=== PATIENT | male | born 1960 | race Caucasian/White ===

== ENCOUNTER → 2020-04-19 | Outpatient (CLI) | payer MEDICARE, SELFPAY ==
[~2020-04-19] MED LIST: ALBU2.5V5 NEB; ATOR20 PO; BISM300CH PO; BUSP5 PO; ELIQUIS5 MG PO; FAMO20 PO; FOLIC ACID0.4 MG PO; GLUCHON PO; KRILL OIL500 MG PO; MULVITA PO; SALM50IP INH; VITAMIN D310 MC4 PO; Vitamin B Comple1 EA PO; Vitamin C100 M1 PO
== END | disposition home or self-care (01) ==
LOC: LAB SHORT 16:36 → LAB EV 16:36
DX: L02.215 Cutaneous abscess of perineum (principal)
CPT/HCPCS: 87070; 87205

== ENCOUNTER 2020-07-14 06:01 | Day surgery (SDC) | payer MEDICARE, OTHER ==
[~2020-07-14] VITALS: Ht 175.3 cm; Wt 62.1 kg
[~2020-07-14 06:01] MED LIST changes: -FAMO20 PO
--- NOTE | 2020-07-14 09:28 | NUR ---
6936 PATIENT RETURNED FROM THE [facility]. RADIAL ACCESS ONLY. TR BAND IN PLACE AND 11 ML OF AIR IN THE BAND. NO HEMATOMA, NO BLEEDING. PULSES CHECKED PEDAL RIGHT PT/ DOPPLER, NO RIGHT DP NOTED, LEFT PT/DP DOPPLER. NO PAIN, SLEEPY. MONITOR APPLIED AND VSS. SBAR RECEIVED FROM DOROTHY DENNY
--- NOTE | 2020-07-14 09:38 | NUR ---
BREAKFAST TRAY SET UP AND PATIENT AWAKE AND FEEDING SELF. RIGHT RADIAL WITH ARM BOARD TO DETER USE. NO BLEEDING, NO HEMATOMA NOTED.
--- NOTE | 2020-07-14 11:15 | NUR ---
AIR REMOVED FROM THE TR BAND PER PROTOCOL. NO BLEEDING NOTED.
--- NOTE | 2020-07-14 11:54 | NUR ---
PATIENT UP AND DRESSED, TR BAND FLAT ANDNO BLEEDING NOTED. REVIEWED ALL DISCHARGE INSTRUCTIONS AND NO FURTHER QUESTIONS NOTED. TR BAND REMOVED AND SITE CLEANED. CLOTH DOT AND WHITE BOARD REPLACED. PATIENT UNDERSTANDS NOT TO USE THE RIGHT ARM FOR 24 HOURS. PATIENT DRESSED AND ALL BELONGINGS RETAINED. PATIENT TO THE WHEELCHAIR. DISCHARGED HOME WITH DRIVING.
[2020-11-05] MEDS ORDERED: FAMO20 PO (12:45)
== END 2020-07-14 12:00 | disposition home or self-care (01) ==
LOC: MHTC 06:01
DX: I70.213 Atherosclerosis of native arteries of extremities with intermittent claudication, bilateral legs (principal); I10 Essential (primary) hypertension; J44.9 Chronic obstructive pulmonary disease, unspecified; E78.5 Hyperlipidemia, unspecified; Z79.01 Long term (current) use of anticoagulants; Z87.891 Personal history of nicotine dependence; Z88.8 Allergy status to other drugs, medicaments and biological substances; Z91.018 Allergy to other foods
CPT/HCPCS: 37221; 37224; 75625; 75716; 75774; 76937; 99152; 99153; C1725; C1769; C1876; C1887; C1894; J1644; J2250; J3010; J7030; J7050; Q9967

== ENCOUNTER 2020-08-05 06:21 | Day surgery (SDC) | payer MEDICARE, OTHER ==
[~2020-08-05] VITALS: Ht 175.3 cm; Wt 62.0 kg
--- NOTE | 2020-08-05 11:22 | NUR ---
PT BACK TO RECOVERY ROOM AFTER PROCEDURE. RIGHT RADIAL, LEFT DP, AND LEFT PT ACCESS SITES PRESENT. LEFT PT SITE HAS CONTINUED TO BLEED AFTER 20 MINUTES OF MANUAL PRESSURE. WILL CONTINUE TO HOLD PRESSURE.
--- NOTE | 2020-08-05 11:40 | NUR ---
LEFT PT SITE HAS CONTINUED TO HAVE PULSATILE BLEEDING AFTER 20 MINUTES OF MANUAL PRESSURE. MANUAL PRESSURE CONTINUES, WILL NOTIFY DR ARAUJO OF CONTINUED BLEEDING.
--- NOTE | 2020-08-05 12:00 | NUR ---
LEFT PT SITE CONTINUES TO BLEED. PT STATES HE IS HAVING PAIN AT THE SITE OF "20" OUT OF 10, DUE TO THE MANUAL PRESSURE. MEDICATED WITH 50MCG FENTANYL IV PER ORDERS.
--- NOTE | 2020-08-05 12:45 | NUR ---
PT SLEEPING INTERMITTENTLY, COMPLAINS OF RIGHT SHOULDER PAIN. APPEARS VERY RESTLESS IN BED, SHIFTING WEIGHT AROUND FREQUENTLY. MEDICATED WITH 25MCG FENTANYL IV.
--- NOTE | 2020-08-05 12:55 | NUR ---
ATTEMPTED TO TAKE SOME AIR OUT OF TR BAND, 2 CC'S REMOVED, IMMEDIATE PULSATILE BLEEDING NOTED.
--- NOTE | 2020-08-05 13:16 | NUR ---
PT CONTINUES TO COMPLAIN OF PAIN "ALL OVER", REMAINS RESTLESS AND IS MOVING AROUND IN BED. BP ELEVATED, MEDICATED WITH 10MG HYDRALAZINE IV, WILL REPEAT IN 10 MIN IF BP CONTINUES TO BE ELEVATED.
--- NOTE | 2020-08-05 14:05 | NUR ---
PT PROVIDED WITH LUNCH TRAY, TOLERATES WITH NO DIFFICULTIES. TR BAND FULLY DEFLATED, ARM BOARD REMAINS ON FOR SUPPORT. OOZING NOTED UNDER TR BAND, WILL CONTINUE TO MONITOR. NO SIGNS OF HEMATOMA. LEFT POST TIBIAL SITE WITH NEW RINKU PAD IN PLACE AND PRESSURE DRESSING ON, BLEEDING NOTED WHEN TRYING TO REMOVE INITIAL PRESSURE DRESSING THAT WAS IN PLACE. CALL LIGHT IN REACH.
--- NOTE | 2020-08-05 15:30 | NUR ---
PRESSURE DRESSING REMOVED FROM LEFT PT SITE. RINKU PAD AND TEGADERM IN PLACE. NO ACTIVE BLEEDING NOTED. RIGHT RADIAL SITE WITHOUT BLEEDING OR SWELLING.
--- NOTE | 2020-08-05 15:57 | NUR ---
TR BAND REMOVED FROM RIGHT WRIST, RED CLOTH DOT DRESSING APPLIED. ARM BOARD ON FOR SUPPORT. PT OUT OF BED, PRESSURE DRESSING PREVIOUSLY REMOVED, SITE DOES NOT APPEAR TO BE ACTIVELY BLEEDING ON LEFT POST TIBIAL REGION. NON SKID SOCKS PLACED FOR AMBULATING, PT INTO RESTROOM WITH CANE. NO ACUTE DISTRESS NOTED.
== END 2020-08-05 23:26 | disposition home or self-care (01) ==
LOC: MHTC 06:21
DX: I70.213 Atherosclerosis of native arteries of extremities with intermittent claudication, bilateral legs (principal); I10 Essential (primary) hypertension; E78.5 Hyperlipidemia, unspecified; J44.9 Chronic obstructive pulmonary disease, unspecified; Z89.412 Acquired absence of left great toe; Z87.891 Personal history of nicotine dependence
CPT/HCPCS: 36200; 37224; 37228; 37232; 75710; 75716; 75774; 76937; 85347; 99152; 99153; C1725; C1769; C1887; C1894; C2623; J0360; J1644; J2250; J2997; J3010; J7030; J7040; J7050; Q9967

== ENCOUNTER 2020-11-12 10:00 | Day surgery (SDC) | payer MEDICARE, SELFPAY ==
[~2020-11-12] VITALS: Ht 175.3 cm; Wt 62.9 kg
[~2020-11-12 10:00] MED LIST changes: +FAMO20 PO
== END 2020-11-12 12:27 | disposition home or self-care (01) ==
LOC: ORSCSDS 10:00
PROVIDERS: Internal Medicine Gastroenterology
PROC: 0DB68ZX Excision of Stomach, Via Natural or Artificial Opening Endoscopic, Diagnostic (ICD-10-PCS; principal; 2020-11-12 11:15)
PROC: 0DBL8ZX Excision of Transverse Colon, Via Natural or Artificial Opening Endoscopic, Diagnostic (ICD-10-PCS; principal; 2020-11-12 11:15)
PROC: 0DBN8ZX Excision of Sigmoid Colon, Via Natural or Artificial Opening Endoscopic, Diagnostic (ICD-10-PCS; principal; 2020-11-12 11:15)
DX: R19.5 Other fecal abnormalities (principal); D12.5 Benign neoplasm of sigmoid colon; D37.4 Neoplasm of uncertain behavior of colon; K64.8 Other hemorrhoids; K25.9 Gastric ulcer, unspecified as acute or chronic, without hemorrhage or perforation; K29.80 Duodenitis without bleeding; K44.9 Diaphragmatic hernia without obstruction or gangrene; K21.00 Gastro-esophageal reflux disease with esophagitis, without bleeding; Z79.899 Other long term (current) drug therapy; F41.9 Anxiety disorder, unspecified; J44.9 Chronic obstructive pulmonary disease, unspecified; E78.5 Hyperlipidemia, unspecified; Z87.891 Personal history of nicotine dependence
CPT/HCPCS: 88305; 88342; J2704; J7120

== ENCOUNTER → 2021-04-12 | Outpatient (CLI) | payer MEDICARE ==
[~2021-04-12] MED LIST changes: -SALM50IP INH; +Serevent Disku50 MCG IH
== END ==
LOC: LAB SHORT 09:10 → LAB 09:10
DX: N61.1 Abscess of the breast and nipple (principal); N61.0 Mastitis without abscess
CPT/HCPCS: 87070; 87075; 87205

== ENCOUNTER 2021-06-07 06:19 | Day surgery (SDC) | payer MEDICARE ==
[~2021-06-07] VITALS: Ht 175.3 cm; Wt 62.0 kg
[2021-06-07] MEDS ORDERED: Acetaminophen650 M1 PO (07:17)
[2021-06-07] MEDS ORDERED: OMEGA-3 KRILL1 EAC4 PO (07:18)
[2021-06-07] MEDS ORDERED: OMEP20ER PO (07:19)
--- NOTE | 2021-06-07 12:05 | NUR ---
PT DRESSED SELF AND AMBULATED TO RESTROOM WITH NO COMPLICATIOONS. PTS R PT SITE STARTED BLEEDING ONCE PUTTING ON SOCK. MANUAL PRESSURE HELD TO SITE X5MINS. RINKU DRESSING APPLIED TO SITE. PT WALKED AROUND WITH NO ADDITIONAL BLEEDING AND INSISTED ONE GOING HOME. PT EDUCATED TO STAY OFF FOOT FOR THE REST OF THE DAY. PT STATES HIS UNDERSTANDING AND HOW TO HOLD PRESSURE TO SITE IF BLEEING WAS TO OCCUR AT HOME. PT STATES THIS IS HIS THIRD PROCEDURE WITH THE SAME ACCESS SITE AND DENIES ANY QUESTIONS OR CONCERNS. IV DCD WITH CATH INTACT. VSS. PT TAKEN TO EXIT VIA WHEELCHAIR. CHECKED PTS ACCESS SITE PRIOR TO GETTING INTO CAR AND SITE WAS STABLE WITH NO BLEEDING, OOZING OR HEMATOMA NOTED.
== END 2021-06-07 15:50 | disposition home or self-care (01) ==
LOC: MHTC 06:19
DX: I70.222 Atherosclerosis of native arteries of extremities with rest pain, left leg (principal)
CPT/HCPCS: 76937; 85347; 99152; 99153; C1725; C1769; C1887; C1894; C2623; J1644; J2250; J3010; J7030; J7050; Q9967

== ENCOUNTER 2021-11-20 12:35 | Inpatient (IN) | payer MEDICARE ==
[~2021-11-20] VITALS: Ht 175.3 cm; Wt 74.9 kg
[~2021-11-20 12:35] MED LIST changes: +Acetaminophen650 M1 PO; -FOLIC ACID0.4 MG PO; -GLUCHON PO; +OMEP20ER PO; -VITAMIN D310 MC4 PO; -Vitamin B Comple1 EA PO; -Vitamin C100 M1 PO
[2021-11-20 15:13] LABS: BASOPHILS ABSOLUTE AUTO 0.05 K/mm3 (0.00-0.23); BASOPHILS PERCENT AUTO 0 % (0-2); EOSINOPHILS ABSOLUTE AUTO 0.02 K/mm3 (0.00-0.68); EOSINOPHILS PERCENT AUTO 0 % (0-6); Hematocrit 41.6 % (37.0-53.0); IMMATURE GRAN ABSOLUTE AUTO 0.03 K/mm3 (0.00-0.10); IMMATURE GRAN PERCENT AUTO 0 % (0-1); LYMPHOCYTES ABSOLUTE AUTO 2.59 K/mm3 (0.84-5.20); LYMPHOCYTES PERCENT AUTO 21 % (21-46); MONOCYTES ABSOLUTE AUTO 0.52 K/mm3 (0.16-1.47); MONOCYTES PERCENT AUTO 4 % (4-13); Mean Corpuscular HGB 35.3 pg (26.0-34.0); Mean Corpuscular HGB Conc 33.7 g/dL (31.5-36.5); Mean Corpuscular Volume 105 fL (80-100); Mean Platelet Volume 10.3 fL (9.1-12.4); NEUTROPHILS ABSOLUTE AUTO 9.01 K/mm3 (1.96-9.15); NEUTROPHILS PERCENT AUTO 74 % (41-73); Platelet Count 194 K/mm3 (150-400); RDW Coefficient Variation 15.4 % (11.7-14.2); RDW Standard Deviation 59.7 fL (35.1-46.3); Red Blood Cell Count 3.97 M/mm3 (4.30-5.90); White Blood Cell Count 12.22 K/mm3 (4.00-11.30)
[2021-11-20 15:38] LABS: Albumin, Blood 1.5 g/dL (3.4-5.0); Albumin/Globulin Ratio 0.4 (0.8-1.8); Bilirubin, Total 0.7 mg/dL (0.1-1.0); Bun/Creatinine Ratio 10.1 (12.0-20.0); Calcium, Blood 7.6 mg/dL (8.5-10.1); Creatinine, Blood 1.09 mg/dL (0.60-1.20); Globulin, Blood 4.2 g/dL (2.2-4.0); Potassium, Blood 3.8 mmol/L (3.5-5.5); Total Protein, Blood 5.7 g/dL (6.4-8.2)
[2021-11-20 16:48] LABS: Creatine Kinase MB 38.9 ng/mL (0.0-3.6); Creatine Kinase MB Index 10.4 (0.0-4.0)
[2021-11-20] MEDS ORDERED: ACET325 PO (17:11)
[2021-11-21] MEDS ORDERED: FOLIC ACID0.4 MG PO (01:40)
[2021-11-21] MEDS ORDERED: VITAMIN D310 MC4 PO (01:40)
[2021-11-21] MEDS ORDERED: Vitamin C100 M1 PO (01:40)
[2021-11-21] MEDS ORDERED: GLUCHON PO (01:40)
[2021-11-21] MEDS ORDERED: OMEGA-3 KRILL1 EAC4 PO (01:40)
[2021-11-21] MEDS ORDERED: Vitamin B Comple1 EA PO (01:40)
[2021-11-21] MEDS ORDERED: ZINC50 M3 PO (01:46)
[2021-11-21 04:35] LABS: BASOPHILS ABSOLUTE AUTO 0.05 K/mm3 (0.00-0.23); BASOPHILS PERCENT AUTO 1 % (0-2); EOSINOPHILS ABSOLUTE AUTO 0.17 K/mm3 (0.00-0.68); EOSINOPHILS PERCENT AUTO 2 % (0-6); Hematocrit 38.3 % (37.0-53.0); Hemoglobin 12.9 g/dL (13.5-17.5); IMMATURE GRAN ABSOLUTE AUTO 0.03 K/mm3 (0.00-0.10); IMMATURE GRAN PERCENT AUTO 0 % (0-1); LYMPHOCYTES ABSOLUTE AUTO 2.18 K/mm3 (0.84-5.20); LYMPHOCYTES PERCENT AUTO 25 % (21-46); MONOCYTES ABSOLUTE AUTO 0.51 K/mm3 (0.16-1.47); MONOCYTES PERCENT AUTO 6 % (4-13); Mean Corpuscular HGB 35.2 pg (26.0-34.0); Mean Corpuscular HGB Conc 33.7 g/dL (31.5-36.5); Mean Corpuscular Volume 105 fL (80-100); Mean Platelet Volume 10.8 fL (9.1-12.4); NEUTROPHILS ABSOLUTE AUTO 5.73 K/mm3 (1.96-9.15); NEUTROPHILS PERCENT AUTO 66 % (41-73); Platelet Count 174 K/mm3 (150-400); RDW Coefficient Variation 15.5 % (11.7-14.2); RDW Standard Deviation 60.1 fL (35.1-46.3); Red Blood Cell Count 3.66 M/mm3 (4.30-5.90); White Blood Cell Count 8.67 K/mm3 (4.00-11.30)
[2021-11-21 04:51] LABS: International Normalized Ratio 2.02; Prothrombin Time Results 20.3 Sec (9.7-11.5)
[2021-11-21 04:55] LABS: Albumin, Blood 1.2 g/dL (3.4-5.0); Albumin/Globulin Ratio 0.3 (0.8-1.8); Bilirubin, Total 0.7 mg/dL (0.1-1.0); Bun/Creatinine Ratio 9.3 (12.0-20.0); Calcium, Blood 7.4 mg/dL (8.5-10.1); Creatinine, Blood 1.07 mg/dL (0.60-1.20); Globulin, Blood 3.5 g/dL (2.2-4.0); Magnesium, Blood 1.7 mg/dL (1.6-2.4); Potassium, Blood 3.5 mmol/L (3.5-5.5); Total Protein, Blood 4.7 g/dL (6.4-8.2)
--- NOTE | 2021-11-21 06:23 | NUR ---
FILTER PRESS TENDER SUMMARY PT IS ALERT AND ORIENTED COMMUNICATING APPROPRIATELY W STAFF. PT HAS DENIED ANY CP OR PRESSURE THIS SHIFT. O2 SATS >92% ON RM AIR BUT WHEN PT WAS ASLEEP HIS SPO2 DROPED TO 85% REQUIRING 2-3L TO MAINTAIN O2 SATS >92%. TROPONINS PEAKED AND PROVIDER NOTIFIED W NEW ORDER TO CONSULT CARDIOLOGY, MESSAGE LEFT AT CARDIOLOGY ANSWERING SERVICE. PT'S BP WNL AND STABLE. TELE SHOWING SR IN THE 70'S-80'S THIS SHIFT. WILL REPORT TO ONCOMING RN.
--- NOTE | 2021-11-21 17:12 | NUR ---
SHIFT SUMMARY PT REMAINS ALERT AND ORIENTED. VS STABLE. BP SOFT THIS EVENING, BUT MAP IS >65. HR REMIANS NSR. PT DENIES ANY CP ALL SHIFT. O2 SATS >90% ON RA. PLAN FOR ANGIO IN THE AM AND PT TO BE NPO AFTER MIDNIGHT. AT BEDSIDE. WILL CONTINUE TO MONITOR AND REPORT TO ONCOMING RN
[2021-11-22 05:48] LABS: International Normalized Ratio 1.66; Prothrombin Time Results 16.9 Sec (9.7-11.5)
[2021-11-22 06:00] LABS: Bun/Creatinine Ratio 7.6 (12.0-20.0); Calcium, Blood 7.1 mg/dL (8.5-10.1); Creatinine, Blood 1.31 mg/dL (0.60-1.20); Potassium, Blood 3.8 mmol/L (3.5-5.5)
--- NOTE | 2021-11-22 06:20 | NUR ---
CARDIAC SONOGRAPHER SUMMARY PT IS ALERT AND ORIENTED COMMUNICATING APPROPRIATELY W STAFF. PT HAS DENIED ANY CP OR PRESSURE THIS SHIFT. O2 SATS >90% ON RM AIR WHILE AWAE BUT AGAIN REQUIRING 3L NC WHEN ASLEEP TO MAINATIN O2 SATS >90%. BP REMAINED SOFT ALL SHIFT SO THE PT'S 2100 LOPRESSOR WAS HELD. TELE SHOWING SR IN THE 80'S ALL NIGHT. PT NPO SINCE MIDNIGHT FOR PROCEDURE. WILL REPORT TO ONCOMING RN.
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
--- NOTE | 2021-11-22 11:11 | NUR ---
[facility] came to get the pt for his angiogram. Dr. Mendoza was also here to see the patient pre-procedure. Call to his Ashley per her request to let her know that the pt is going to label drier. Ashley stated that she will be here in about 45 minutes.
--- NOTE | 2021-11-22 12:24 | NUR ---
Spouse of the patient is back in the room.
--- NOTE | 2021-11-22 13:28 | NUR ---
PT returned from the dental laboratory technician apprentice, Kerry and Jennifer, RNs accompanying the pt. of pt at the bedside. Report rec'd at the bedside, and TR band assessed. NO bruising, no bleeding, no swelling, no s/s hematoma. PT has poor purfusion to the extremities, (hx PVD) so no accurate pleth for spo2 on the left hand distal to the TR band, SPo2 measured on the ear is less than 90%, so pt was put on 2 l/min of o2 and spo2 is 94%. Pt is eating lunch at this time. White immoblizer board in place on the left wrist. Vital signs are stable, blood pressure is soft but MAP is 87. No c/o pain/dyspnea/discomfort.
--- NOTE | 2021-11-22 14:14 | NUR ---
TR band remains fully inflated as on arrival from laboratory cureman. The site is still without swelling, bruising, hematoma, nor bleeding. Difficulty getting spo2 measurement on the left hand. laborer general staff also reported that this was difficult during the procedure. Spo2 is sometimes able to obtain on the ear. Distal pulse on the left wrist is palpable, and cap refill on the fingers is 4 seconds. Pt denies any pain/discomfort.
--- NOTE | 2021-11-22 14:24 | NUR ---
2 CC AIR REMOVED FROM TR BAND, 2 HOURS POST PLACEMENT.
--- NOTE | 2021-11-22 17:28 | NUR ---
1645 TR Band was removed after being fully deflated for 1.5 hours. The site was cleaned with chlorohexidine skin swab, and sterile tegederm dressing applied. Dr. Mendoza is at the bedside at this time. Pt told that it looks like he may have some problems with his liver. GI consultation was communicated to Dr. Velazquez. Pt has been NPO since after lunch for USS of the liver/abdomen.
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
--- NOTE | 2021-11-23 07:48 | NUR ---
Spoke with Dr. Velazquez at this time, requested GI consultation and explained the reason for the consultation.
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
--- NOTE | 2021-11-23 10:17 | NUR ---
OT here to evaluate the patient.
[2021-11-23 11:29] LABS: BASOPHILS ABSOLUTE AUTO 0.05 K/mm3 (0.00-0.23); BASOPHILS PERCENT AUTO 1 % (0-2); EOSINOPHILS ABSOLUTE AUTO 0.02 K/mm3 (0.00-0.68); EOSINOPHILS PERCENT AUTO 0 % (0-6); Hematocrit 39.5 % (37.0-53.0); Hemoglobin 12.9 g/dL (13.5-17.5); IMMATURE GRAN ABSOLUTE AUTO 0.02 K/mm3 (0.00-0.10); IMMATURE GRAN PERCENT AUTO 0 % (0-1); LYMPHOCYTES ABSOLUTE AUTO 1.83 K/mm3 (0.84-5.20); LYMPHOCYTES PERCENT AUTO 18 % (21-46); MONOCYTES ABSOLUTE AUTO 0.64 K/mm3 (0.16-1.47); MONOCYTES PERCENT AUTO 6 % (4-13); Mean Corpuscular HGB Conc 32.7 g/dL (31.5-36.5); Mean Corpuscular Volume 107 fL (80-100); Mean Platelet Volume 10.2 fL (9.1-12.4); NEUTROPHILS ABSOLUTE AUTO 7.79 K/mm3 (1.96-9.15); NEUTROPHILS PERCENT AUTO 75 % (41-73); Platelet Count 213 K/mm3 (150-400); RDW Coefficient Variation 15.1 % (11.7-14.2); RDW Standard Deviation 60.3 fL (35.1-46.3); Red Blood Cell Count 3.69 M/mm3 (4.30-5.90); White Blood Cell Count 10.35 K/mm3 (4.00-11.30)
[2021-11-23 11:44] LABS: International Normalized Ratio 1.56; Prothrombin Time Results 15.9 Sec (9.7-11.5)
[2021-11-23 12:00] LABS: Albumin, Blood 1.2 g/dL (3.4-5.0); Albumin/Globulin Ratio 0.3 (0.8-1.8); Bilirubin, Total 0.7 mg/dL (0.1-1.0); Bun/Creatinine Ratio 8.8 (12.0-20.0); Calcium, Blood 7.3 mg/dL (8.5-10.1); Creatinine, Blood 1.36 mg/dL (0.60-1.20); Globulin, Blood 3.7 g/dL (2.2-4.0); Potassium, Blood 4.7 mmol/L (3.5-5.5); Total Protein, Blood 4.9 g/dL (6.4-8.2)
[2021-11-23 14:12] LABS: Percent Saturation 88.5 % (20.0-50.0)
--- NOTE | 2021-11-23 18:21 | NUR ---
SHIFT SUMMARY PT A&Ox4, VSS, SpO2> 92% RA, SR 80'S. POOR PROFUSION TO EXTREMITIES SECONDARY TO PVD RESULTING IN LOW SpO2 READING ON FINGERS AND TOES, EAR PROBE READS >92%. PT WORKED WITH OT AND PHYSICAL THERAPY, PT IS A 1 ASSIST FOR AMBULATION. PT CONTINENT OF BOTH URINE AND BOWEL USING THE URINAL INDEPENDENTLY AT BEDSIDE. ANGIO SITE WNL. PT STATUS CHANGED TO MEDICAL, NO TELE.
--- NOTE | 2021-11-24 06:54 | NUR ---
NO ACUTE EVENTS OVERNIGHT LAST NIGHT. PATIENT ASKED TO BE LEFT ALONE SO THAT HE COULD SLEEP. VITAL SIGNS AND CARE ROUNDS COMPLETED PER PROTOCOL, AND MEDICATIONS ADMINISTERED ORDERED. PT REPORTED THIS MORNING THAT HE WAS ABLE TO SLEEP FAIRLY COMFORTABLY LAST NIGHT. NO CHANGES IN MENTATION OR RESPIRATORY STATUS.
--- NOTE | 2021-11-24 17:39 | NUR ---
SHIFT SUMMARY NO ACUTE EVENTS THIS SHIFT, VSS. PT ALERT AND ORIENTED, COOPERATIVE WITH CARE. PT ENDORSED CHRONIC PAIN AND NEUROPATHY, NO CHANGE FROM BASELINE. PT X1 ASSIST TO RECLINER WITH WALKER AND GAIT BELT. WCTM UNTIL NEXT SHIFT RN ASSUMES CARE.
--- NOTE | 2021-11-24 19:50 | NUR ---
CALL TO PHARMD REGARDING PATIENT THIRD SPACING AND ADDITION OF ALBUMIN TO TREATMENT PLAN. IN MY PRACTICE, I AM ACCUSTOMED TO ORDERS TO ADMINISTER LASIX FOLLOWING THE INFUSION OF ALBUMIN. AT THIS TIME, BOTH ARE TIMED TO BE GIVEN SIMULTANEOUSLY. PHARMD AGREED THIS IS AN APPROPRIATE ORDER OF ADMINISTRATION OF THESE TWO MEDICATIONS GIVEN THE INTENDED PURPOSE OF DIURESIS. PHARMD TO EDIT THE LASIX ORDER TO INCLUDE INSTRUCTIONS TO ADMINISTER FOLLOWING THE INFUSION OF THE ALBUMIN.
--- NOTE | 2021-11-25 06:15 | NUR ---
PATIENT HAS SOME WEEPING OF SEROUS FLUID FROM HIS LEFT FOREARM AND UPPER ARM. THIRD SPACING IS PRESENT. ABSORBENT DRESSING APPLIED AND CHANGED X 3 OVERNIGHT TONIGHT. MOST RECENT DRESSING CHANGE COMPLETED AT THIS TIME INCLUDES USE OF ABDOMINAL PADS X2, GAUZE, WRAPPED WITH KERLIX, SECURED WITH SOME KOBAN. PT WAS UP TO BEDSIDE COMMODE AND REQUIRED THE ASSISTANCE OF 2 STAFF MEMBERS TO RETURN TO BED. HE IS SIGNIFICANTLY WEAK AND DECONDITIONED. HE ALSO EXPERIENCES SEVERE PAIN IN HIS LEGS WHEN BEARING WEIGHT.
--- NOTE | 2021-11-25 16:23 | NUR ---
SHIFT SUMMARY PT A/O X4 AND COOPERATIVE OF CARE. VSS THROUGHOUT SHIFT WITH 02 SATS IN THE 90'S, 2 L NC PRN. PT REPORTED SOB WITH EXERTION. PT SEEN BY PT/OT TODAY, REQUIRED PERIODS OF REST BETWEEN EXERCISES, SEE THERAPIST'S NOTES. PT IV LASIX SWITCHED TO PO BUMEX PER DR ORDERS. PT WAS UP TO CHAIR FOR LUNCH AFTER WORKING WITH OT, TOLERATED FAIR. NO ACUTE CHANGES.
[2021-11-26 00:11] LABS: HBSAG SCREEN Negative (Negative); HCV AB 0.1 (0.0-0.9); HEP A AB, IGM Negative (Negative); HEP B CORE AB, IGM Negative (Negative)
[2021-11-26 08:47] LABS: BASOPHILS ABSOLUTE AUTO 0.04 K/mm3 (0.00-0.23); BASOPHILS PERCENT AUTO 0 % (0-2); EOSINOPHILS ABSOLUTE AUTO 0.02 K/mm3 (0.00-0.68); EOSINOPHILS PERCENT AUTO 0 % (0-6); Hematocrit 34.3 % (37.0-53.0); Hemoglobin 11.5 g/dL (13.5-17.5); IMMATURE GRAN ABSOLUTE AUTO 0.02 K/mm3 (0.00-0.10); IMMATURE GRAN PERCENT AUTO 0 % (0-1); LYMPHOCYTES ABSOLUTE AUTO 1.72 K/mm3 (0.84-5.20); LYMPHOCYTES PERCENT AUTO 17 % (21-46); MONOCYTES ABSOLUTE AUTO 0.85 K/mm3 (0.16-1.47); MONOCYTES PERCENT AUTO 9 % (4-13); Mean Corpuscular HGB 34.8 pg (26.0-34.0); Mean Corpuscular HGB Conc 33.5 g/dL (31.5-36.5); Mean Corpuscular Volume 104 fL (80-100); Mean Platelet Volume 10.4 fL (9.1-12.4); NEUTROPHILS ABSOLUTE AUTO 7.33 K/mm3 (1.96-9.15); NEUTROPHILS PERCENT AUTO 74 % (41-73); Platelet Count 190 K/mm3 (150-400); RDW Coefficient Variation 14.8 % (11.7-14.2); RDW Standard Deviation 56.7 fL (35.1-46.3); White Blood Cell Count 9.98 K/mm3 (4.00-11.30)
[2021-11-26 09:03] LABS: Albumin, Blood 2.6 g/dL (3.4-5.0); Bun/Creatinine Ratio 9.6 (12.0-20.0); Calcium, Blood 7.9 mg/dL (8.5-10.1); Creatinine, Blood 1.56 mg/dL (0.60-1.20); Globulin, Blood 2.6 g/dL (2.2-4.0); Magnesium, Blood 1.6 mg/dL (1.6-2.4); Phosphorus, Blood 3.1 mg/dL (2.5-4.9); Potassium, Blood 3.9 mmol/L (3.5-5.5); Total Protein, Blood 5.2 g/dL (6.4-8.2)
[2021-11-26 09:05] LABS: International Normalized Ratio 2.06; Prothrombin Time Results 20.6 Sec (9.7-11.5)
--- NOTE | 2021-11-26 16:04 | NUR ---
SHIFT SUMMARY PT A/O X 4 AND COOPERATIVE OF CARE. VSS THROUGHOUT SHIFT WITH O2 SATS IN THE 90'S ON RA, 2L NC PRNRARILY USED TODAY. NO REPORT OF CHEST PAIN/PRESSURE THROUGHOUT SHIFT. PT REPORTS SOB WHEN AMBULATING BUT STATES "NOT BAD YESTERDAY." SPOKE WITH PT AND PT TODAY ABOUT POSSIBLE HOME HEALTH/HOSPICE FOR WHEN DISCHARGED. OPEN TO THE IDEA OF HOME HEALTH AND HOSPICE. PT LESS MOTIVATED TO WORK WITH PHYSICAL THERAPY TODAY AFTER NEWS OF CURRENT HEALTH STATUS. PT WAS ABLE TO TRANSFER TO CHAIR FOR BATHING, REPORTING "I FEEL LIKE I HAVE MORE STRENGTH TODAY."
[2021-11-26 16:07] LABS: NUCLEOLAR PATTERN >1:1280 (.)
--- NOTE | 2021-11-26 17:04 | NUR ---
TRANSFER UPDATE REPORT GIVEN TO [facility] ON MEDICAL FLOOR AT 2936.
--- NOTE | 2021-11-26 17:47 | NUR ---
Met with pt and today to discuss pt's Code Status. I first spoke with pt's ChuWay by phone, and she was tearful at times, but also very matter of fact about "getting his affairs in order" meaning the patient's affairs. She asked very good questions, and understands that the pt will not be a candidate for hospice while pursuing Skilled Rehab, but skilled rehab is the only option that will help pt gain strength. If he is unable to participate, they can pursue hospice then. Pt filled out POLST this evening, chose DNR with limited interventions. He does indicate he would like to drink Coffee in the mornings since; he states, "I'm not going to live that long anyway, so why not enjoy coffee?". His agrees. Will request modified order from Dr. Andersen if he is agreeable. Palliative Care will continue to follow pt.
--- NOTE | 2021-11-26 18:19 | NUR ---
1720 RECEIVED PT TO RM 327 FROM PCU 11. PT IS A&O WITH TO RM AT BS. PALLIATIVE CARE TO RM SOON PT RECEIVED, ASSISTING WITH POLST; PT NOW DNR. MEDS ADMINISTERED PER EMAR. PT POSSIBLY TO D/C TO SNF ON SUNDAY IF INSURANCE CLEARS. PT RESTING QUIETLY WATCHING TV WITH . DENIED FURTHER NEEDS AT THIS TIME. CALL LT IN REACH.
[2021-11-27 06:08] LABS: CERULOPLASMIN 12.8 mg/dL (16.0-31.0)
--- NOTE | 2021-11-27 06:47 | NUR ---
INSURANCE JOB TITLES SUMMARY PT IS ALERT AND ORIENTED X4, APPEARS DEPRESSED. PLAN FOR CONSULT WITH HOSPICE TODAY. COOPERATIVE WITH CARE. HAS BEEN IN BED - INDEPENDENT WITH URINAL. ABLE TO REPOSITION HIMSELF. NO BM. 1PA UP TO COMMODE. NO COMPLAINTS OF PAIN. NO ACUTE EVENTS THIS SHIFT.
[2021-11-27 07:10] LABS: Albumin, Blood 2.7 g/dL (3.4-5.0); Albumin/Globulin Ratio 1.1 (0.8-1.8); Bun/Creatinine Ratio 10.9 (12.0-20.0); Calcium, Blood 7.7 mg/dL (8.5-10.1); Creatinine, Blood 1.37 mg/dL (0.60-1.20); Globulin, Blood 2.4 g/dL (2.2-4.0); Potassium, Blood 3.6 mmol/L (3.5-5.5); Total Protein, Blood 5.1 g/dL (6.4-8.2)
[2021-11-27 07:14] LABS: International Normalized Ratio 2.07; Prothrombin Time Results 20.7 Sec (9.7-11.5)
[2021-11-27 13:08] LABS: ACTIN (SMOOTH MUSCLE) ANTIBODY 8 Units (0-19); MITOCHONDRIAL (M2) ANTIBODY <20.0 Units (0.0-20.0)
--- NOTE | 2021-11-27 14:27 | NUR ---
Pt's Candace came to visit pt this morning; POLST signed by patient, awaiting signature by Dr. Andersen. Pt's code status changed to DNR via verbal order. Pt planning for SN after hospitalization to increase strength prior to returning home. Pt's states they live in a 22 ft long travel trailer and has concerns that as pt's liver failure progresses she will be unable to care for him there due to lack of space for equipment such as a hospital bed, bedside commode, etc. She is planning to call [employer] to discuss bed bug exterminator care insurance on Sunday as pt is currently on SS disability. Will relay this to Care Management for follow up. Palliiative Care to remain available for supportive visits.
--- NOTE | 2021-11-27 15:54 | NUR ---
SHIFT SUMMARY PATIENT IS ALERT AND ORIENTED. PATIENT HAS HAD NO ACUTE EVENTS THIS SHIFT. VITAL SIGNS REVIEWED. PATIENT IS A ONE PERSON ASSIST TO BATHROOM. PATIEND IS IND WITH URINAL. CALLS APPROPRIATELY. PATIENT HAS NOT COMPLAINED OF PAIN, NAUSEA, SOB OR VOMITTING THIS SHIFT. BED IN LOCKED AND LOWEST POSITION. CALL LIGHT IN PLACE. WILL MONITOR UNTIL SHIFT CHANGE.
--- NOTE | 2021-11-28 04:24 | NUR ---
SHIFT SUMMARY: A/OX4, INDEPENDENT REPOSITIONING IN BED. 1 PERSON ASSIST WITH FRONT WHEEL WALKER TO AMBULATE. PT CONTINUES TO CALL APPROPRIATELY. REPORTS NO PAIN THROUGHOUT THE NIGHT AND CONTINUED COMFORT. BED ALARM REMAINS ACTIVATED, BED IN LOW POSITION, CALL PAULINO AND BELONGINGS IN REACH.
[2021-11-28 06:00] LABS: BASOPHILS ABSOLUTE AUTO 0.06 K/mm3 (0.00-0.23); BASOPHILS PERCENT AUTO 1 % (0-2); EOSINOPHILS ABSOLUTE AUTO 0.03 K/mm3 (0.00-0.68); EOSINOPHILS PERCENT AUTO 0 % (0-6); Hematocrit 31.5 % (37.0-53.0); Hemoglobin 10.6 g/dL (13.5-17.5); IMMATURE GRAN ABSOLUTE AUTO 0.02 K/mm3 (0.00-0.10); IMMATURE GRAN PERCENT AUTO 0 % (0-1); LYMPHOCYTES ABSOLUTE AUTO 2.21 K/mm3 (0.84-5.20); LYMPHOCYTES PERCENT AUTO 22 % (21-46); MONOCYTES ABSOLUTE AUTO 0.82 K/mm3 (0.16-1.47); MONOCYTES PERCENT AUTO 8 % (4-13); Mean Corpuscular HGB 35.2 pg (26.0-34.0); Mean Corpuscular HGB Conc 33.7 g/dL (31.5-36.5); Mean Corpuscular Volume 105 fL (80-100); Mean Platelet Volume 11.1 fL (9.1-12.4); NEUTROPHILS ABSOLUTE AUTO 6.94 K/mm3 (1.96-9.15); NEUTROPHILS PERCENT AUTO 69 % (41-73); Platelet Count 180 K/mm3 (150-400); RDW Coefficient Variation 14.6 % (11.7-14.2); RDW Standard Deviation 56.4 fL (35.1-46.3); Red Blood Cell Count 3.01 M/mm3 (4.30-5.90); White Blood Cell Count 10.08 K/mm3 (4.00-11.30)
[2021-11-28 06:08] LABS: Albumin, Blood 2.7 g/dL (3.4-5.0); Albumin/Globulin Ratio 1.2 (0.8-1.8); Calcium, Blood 7.9 mg/dL (8.5-10.1); Creatinine, Blood 1.3 mg/dL (0.60-1.20); Globulin, Blood 2.3 g/dL (2.2-4.0); Magnesium, Blood 1.6 mg/dL (1.6-2.4); Phosphorus, Blood 2.5 mg/dL (2.5-4.9); Potassium, Blood 3.7 mmol/L (3.5-5.5)
--- NOTE | 2021-11-28 08:00 | NUR ---
pt laying in bed visitor in room, awake a/ox3, cooperative with care, follows commands well, reports all over pain, lungs are clear in upper valderrama, dim in bases, resp even and unlabored, no cough noted, hrr, no edema noted, power glide to cesar, site is clear and patent, btx4, abd flat soft nontender, voids via urinal, skin c/w/d, maew, johnna, call light in reach.
[2021-11-28 12:39] LABS: Influenza A, PCR NEGATIVE (NEGATIVE); Influenza B, PCR NEGATIVE (NEGATIVE); Resp Syncytial Virus, PCR NEGATIVE (NEGATIVE); SARS-Cov-2 (COVID-19) PCR, MMC NEGATIVE (NEGATIVE)
[2021-11-28] MEDS ORDERED: METO25 PO (14:13)
[2021-11-28] MEDS ORDERED: BUME1 PO (14:13)
[2021-11-28] MEDS ORDERED: PANTOPRAZOLE SO40 M1 PO (14:13)
[2021-11-28] MEDS ORDERED: CLOP75 PO (14:13)
[2021-11-28] MEDS ORDERED: ALDACTONE100 MG PO (14:15)
[2021-11-28] MEDS ORDERED: NITR.4SL SL (14:15)
[2021-11-28] MEDS ORDERED: ONDA4 PO (14:15)
--- NOTE | 2021-11-28 14:20 | NUR ---
pt has been discharged to [facility], transport arranged for 1500, report called to Quinn, call light in reach.
--- NOTE | 2021-11-28 15:23 | NUR ---
pt has been picked up by transport, left via wheelchair, pharmacy spoke with them about medications prior to leaving. took all belongings.
== END 2021-11-28 15:23 | DRG 281 ==
LOC: ER 12:35 → PCU 16:31 → MEDS 11-26 17:10 → ENPENDDIS 11-28 13:42 → MEDS 11-28 15:23
PROVIDERS: Emergency Medicine; Family Medicine; Internal Medicine; Internal Medicine Cardiovascular Disease; Student in an Organized Health Care Education/Training Program; ADMIT Family Medicine
PROC: 4A023N7 Measurement of Cardiac Sampling and Pressure, Left Heart, Percutaneous Approach (ICD-10-PCS; principal; 2021-11-22)
PROC: B2111ZZ Fluoroscopy of Multiple Coronary Arteries using Low Osmolar Contrast (ICD-10-PCS; 2021-11-22)
DX: I21.4 Non-ST elevation (NSTEMI) myocardial infarction (principal); K86.1 Other chronic pancreatitis; N17.9 Acute kidney failure, unspecified; K72.90 Hepatic failure, unspecified without coma; K76.0 Fatty (change of) liver, not elsewhere classified; K70.9 Alcoholic liver disease, unspecified; K21.9 Gastro-esophageal reflux disease without esophagitis; E78.5 Hyperlipidemia, unspecified; Z79.01 Long term (current) use of anticoagulants; I73.9 Peripheral vascular disease, unspecified; J43.9 Emphysema, unspecified; Z20.822 Contact with and (suspected) exposure to COVID-19; F41.9 Anxiety disorder, unspecified; R73.03 Prediabetes; I25.5 Ischemic cardiomyopathy; Z95.820 Peripheral vascular angioplasty status with implants and grafts; Z87.891 Personal history of nicotine dependence; Z89.419 Acquired absence of unspecified great toe; Z90.49 Acquired absence of other specified parts of digestive tract; Z98.890 Other specified postprocedural states; Z88.8 Allergy status to other drugs, medicaments and biological substances; Z91.018 Allergy to other foods; Z79.899 Other long term (current) drug therapy; G40.909 Epilepsy, unspecified, not intractable, without status epilepticus; E88.09 Other disorders of plasma-protein metabolism, not elsewhere classified; Z88.6 Allergy status to analgesic agent; E78.00 Pure hypercholesterolemia, unspecified; I11.0 Hypertensive heart disease with heart failure; I50.9 Heart failure, unspecified
CPT/HCPCS: 0241U; 36415; 71045; 71260; 76705; 76937; 80048; 80053; 80074; 82103; 82390; 82550; 82553; 82728; 83540; 83550; 83735; 83880; 84100; 84484; 85025; 85610; 86015; 86038; 86381; 93005; 93010; 93306; 93458; 93970; 93975; 94640; 94664; 94760; 94762; 97110; 97116; 97162; 97166; 97530; 97535; 99152; 99153; 99285-25; A9270; C1751; C1769; C1887; C1894; J1644; J1940; J2250; J3010; J7030; J7040; J7050; P9047; Q9967

== ENCOUNTER → 2021-12-22 | Outpatient (CLI) | payer MEDICARE, OTHER ==
[~2021-12-22] MED LIST changes: +ACET325 PO; +ALDACTONE100 MG PO; +BUME1 PO; +CLOP75 PO; +FOLIC ACID0.4 MG PO; +GLUCHON PO; +METO25 PO; +NITR.4SL SL; +OMEGA-3 KRILL1 EAC4 PO; +ONDA4 PO; +PANTOPRAZOLE SO40 M1 PO; +VITAMIN D310 MC4 PO; +Vitamin B Comple1 EA PO; +Vitamin C100 M1 PO; +ZINC50 M3 PO
== END | disposition home or self-care (01) ==
LOC: LAB SHORT 08:30 → LAB FUT 12-15 08:05
PROVIDERS: Physician Assistant Medical
DX: K86.1 Other chronic pancreatitis (principal); R74.8 Abnormal levels of other serum enzymes
CPT/HCPCS: 81050

== ENCOUNTER 2022-02-14 08:50 | Day surgery (SDC) | payer MEDICARE ==
--- NOTE | 2022-02-14 10:29 | NUR ---
02/14/22 1029 Tia Cifuentes ENTRY RN NOTIFIED DR LIN OF PT'S CBG READING OF [address] LIN RECOMMENDED PT GO TO THE ER OR PCP FOR TREATMENT OF CBG LEVEL TODAY. DR LIN CANCELLED TODAY'S SURGERY.PT DENIED THE USE OF MEDICATIONS FOR BLOOD SUGAR AND SYMPTOMS R/T HYPERGLYCEMIA TODAY. PT'S CONTACTED PCP WHILE PT WAS IN PRE OP STILL. PT'S PCP ALSO RECOMMENDED PT GO TO THE ER TODAY. RN ASSISTED PT TO DRESS AND TOOK PT AND PT'S TO THE ER VIA WHEELCHAIR. PT AND PT'S VOICED UNDERSTANDING OF THE SITUATION.
[2022-02-14] MEDS ORDERED: SPIR25 PO (11:31)
[2022-02-14] MEDS ORDERED: Vibramycin100 MG PO (14:07)
[2022-02-14] MEDS ORDERED: METF500 PO (14:07)
== END 2022-02-14 10:15 | disposition other institution (70) ==
LOC: ORSCSDS 08:50
DX: M86.9 Osteomyelitis, unspecified (principal); E08.42 Diabetes mellitus due to underlying condition with diabetic polyneuropathy; Z53.9 Procedure and treatment not carried out, unspecified reason
CPT/HCPCS: 82947; J0690; J7120

== ENCOUNTER 2022-02-14 10:19 | Emergency (ER) | payer MEDICARE ==
[~2022-02-14] VITALS: Ht 175.3 cm; Wt 53.0 kg
[2022-02-14 10:59] LABS: BASOPHILS ABSOLUTE AUTO 0.13 K/mm3 (0.00-0.23); BASOPHILS PERCENT AUTO 1 % (0-2); EOSINOPHILS ABSOLUTE AUTO 0.17 K/mm3 (0.00-0.68); EOSINOPHILS PERCENT AUTO 2 % (0-6); Hematocrit 41.8 % (37.0-53.0); Hemoglobin 14.7 g/dL (13.5-17.5); IMMATURE GRAN ABSOLUTE AUTO 0.03 K/mm3 (0.00-0.10); IMMATURE GRAN PERCENT AUTO 0 % (0-1); LYMPHOCYTES ABSOLUTE AUTO 2.81 K/mm3 (0.84-5.20); LYMPHOCYTES PERCENT AUTO 26 % (21-46); MONOCYTES ABSOLUTE AUTO 0.75 K/mm3 (0.16-1.47); MONOCYTES PERCENT AUTO 7 % (4-13); Mean Corpuscular HGB Conc 35.2 g/dL (31.5-36.5); Mean Corpuscular Volume 91 fL (80-100); Mean Platelet Volume 10.3 fL (9.1-12.4); NEUTROPHILS ABSOLUTE AUTO 6.82 K/mm3 (1.96-9.15); NEUTROPHILS PERCENT AUTO 64 % (41-73); Platelet Count 360 K/mm3 (150-400); RDW Coefficient Variation 12.3 % (11.7-14.2); RDW Standard Deviation 40.9 fL (35.1-46.3); Red Blood Cell Count 4.59 M/mm3 (4.30-5.90); White Blood Cell Count 10.71 K/mm3 (4.00-11.30)
[2022-02-14] MEDS ORDERED: SPIR25 PO (11:31)
[2022-02-14 11:48] LABS: Beta-hydroxybutyrate 2.7 mg/dL (0.2-2.8)
[2022-02-14 11:49] LABS: Albumin, Blood 3.5 g/dL (3.4-5.0); Albumin/Globulin Ratio 0.8 (0.8-1.8); Bilirubin, Total 0.6 mg/dL (0.1-1.0); Bun/Creatinine Ratio 26.1 (12.0-20.0); Calcium, Blood 10.5 mg/dL (8.5-10.1); Creatinine, Blood 0.88 mg/dL (0.60-1.20); Globulin, Blood 4.6 g/dL (2.2-4.0); Potassium, Blood 4.5 mmol/L (3.5-5.5); Total Protein, Blood 8.1 g/dL (6.4-8.2)
[2022-02-14 11:54] LABS: Base Excess Venous 2.7 mmol/L; Bicarbonate Venous 25.3 mmol/L (24.0-30.0); PCO2 Venous 47.8 mmHg (38-42); pH Blood Venous 7.37 (7.34-7.37)
[2022-02-14 11:56] LABS: Magnesium, Blood 2.2 mg/dL (1.6-2.4); Phosphorus, Blood 3.8 mg/dL (2.5-4.9)
[2022-02-14] MEDS ORDERED: Vibramycin100 MG PO (14:07)
[2022-02-14] MEDS ORDERED: METF500 PO (14:07)
== END 2022-02-14 14:15 | disposition home or self-care (01) ==
LOC: ER 10:19
PROVIDERS: Emergency Medicine; Family Medicine
DX: E11.51 Type 2 diabetes mellitus with diabetic peripheral angiopathy without gangrene (principal); L03.116 Cellulitis of left lower limb; N61.0 Mastitis without abscess; J44.9 Chronic obstructive pulmonary disease, unspecified; I10 Essential (primary) hypertension; Z95.828 Presence of other vascular implants and grafts; Z88.1 Allergy status to other antibiotic agents; Z91.02 Food additives allergy status; Z88.8 Allergy status to other drugs, medicaments and biological substances; Z91.018 Allergy to other foods; Z79.899 Other long term (current) drug therapy; Z87.891 Personal history of nicotine dependence
CPT/HCPCS: 36415; 80053; 82010; 82803; 82947; 83735; 84100; 85025; A9270; J1815; J7120

== ENCOUNTER 2022-02-21 06:06 | Day surgery (SDC) | payer MEDICARE ==
[~2022-02-21] VITALS: Ht 175.3 cm; Wt 54.1 kg
[~2022-02-21 06:06] MED LIST changes: +METF500 PO; +SPIR25 PO; +Vibramycin100 MG PO
--- NOTE | 2022-02-21 07:08 | NUR ---
02/21/22 0708 Phylicia Mcpherson BLOOD DRAWN FOR LABS IF NEEDED.
--- NOTE | 2022-02-21 07:37 | NUR ---
02/21/22 0737 FANY MOODY 10MLS ROPIVACAINE 0.5% PLAIN POURED ONTO STERILE FIELD FOR USE DURING CASE. 5MLS OF LIDOCAINE 2% INJECTED INTO L 2ND TOE BY DR MCMANUS AT START OF CASE BEFORE STERILE PREP.
== END 2022-02-21 08:35 | disposition home or self-care (01) ==
LOC: ORSCSDS 06:06
PROVIDERS: Podiatrist Foot & Ankle Surgery
PROC: 0Y6S0Z0 Detachment at Left 2nd Toe, Complete, Open Approach (ICD-10-PCS; principal; 2022-02-21 07:30)
DX: M86.9 Osteomyelitis, unspecified (principal); E08.42 Diabetes mellitus due to underlying condition with diabetic polyneuropathy; Z79.4 Long term (current) use of insulin; Z79.84 Long term (current) use of oral hypoglycemic drugs; Z79.01 Long term (current) use of anticoagulants; Z79.899 Other long term (current) drug therapy; Z79.02 Long term (current) use of antithrombotics/antiplatelets; J44.9 Chronic obstructive pulmonary disease, unspecified; E78.5 Hyperlipidemia, unspecified; I10 Essential (primary) hypertension; G40.909 Epilepsy, unspecified, not intractable, without status epilepticus
CPT/HCPCS: 82947; A9270; J0690; J1100; J2001; J2250; J2405; J2704; J2795; J3010; J7120

== ENCOUNTER → 2022-02-22 | Outpatient (CLI) | payer MEDICARE | LOC: LAB SHORT 15:49 → LAB 15:49 | DX: N61.1 Abscess of the breast and nipple (principal) | CPT/HCPCS: 87070; 87075; 87076; 87205 ==

== ENCOUNTER 2022-04-12 07:26 | Day surgery (SDC) | payer MEDICARE, OTHER ==
[~2022-04-12] VITALS: Ht 175.3 cm; Wt 56.0 kg
[~2022-04-12 07:26] MED LIST changes: +DURAMORPH 11 MG/1 M1; +NOVOLOG FL100 UNIT/3; +TRAM50 PO
[2022-04-12] MEDS ORDERED: Vitamin K100 MCG (08:06)
[2022-04-12] MEDS ORDERED: BASAGLAR K100 UNIT/8 (08:08)
--- NOTE | 2022-04-12 12:03 | NUR ---
PT IV DC'D INTACT, DRESSED, CALLED, PT DC'D BY WC WITH DRIVING PT HOME, PT WILL CALL [facility] TO SET UP HC APPT FOR L LEG PER DR ARAUJO
== END 2022-04-12 12:00 | disposition home or self-care (01) ==
LOC: MHTC 07:26
DX: E11.51 Type 2 diabetes mellitus with diabetic peripheral angiopathy without gangrene (principal); I70.213 Atherosclerosis of native arteries of extremities with intermittent claudication, bilateral legs; I73.9 Peripheral vascular disease, unspecified; E78.5 Hyperlipidemia, unspecified; J44.9 Chronic obstructive pulmonary disease, unspecified; Z88.8 Allergy status to other drugs, medicaments and biological substances
CPT/HCPCS: 76937; 99152; 99153; C1725; C1769; C1887; C1894; J1644; J2250; J3010; J7030; J7040; J7050; Q9967

== ENCOUNTER 2022-05-17 08:15 | Inpatient (IN) | payer MEDICARE, OTHER ==
[~2022-05-17] VITALS: Ht 175.3 cm; Wt 54.4 kg
[~2022-05-17 08:15] MED LIST changes: +BASAGLAR K100 UNIT/8; +METF500C PO; +Vitamin K100 MCG; +XARELTO20 MG PO
[2022-05-17] MEDS ORDERED: Serevent Disku50 MCG IH (08:35)
[2022-05-17] MEDS ORDERED: CREON DR 36,001 EACH PO (08:36)
[2022-05-17] MEDS ORDERED: A AND D OINTM42.5 GM (08:37)
[2022-05-17] MEDS ORDERED: Alph-E-Mixed400 UNIT (08:37)
[2022-05-17 09:46] LABS: BASOPHILS PERCENT AUTO 1 % (0-2); EOSINOPHILS ABSOLUTE AUTO 0.11 K/mm3 (0.00-0.68); EOSINOPHILS PERCENT AUTO 1 % (0-6); Hematocrit 36.8 % (37.0-53.0); Hemoglobin 12.8 g/dL (13.5-17.5); IMMATURE GRAN ABSOLUTE AUTO 0.05 K/mm3 (0.00-0.10); IMMATURE GRAN PERCENT AUTO 0 % (0-1); LYMPHOCYTES ABSOLUTE AUTO 2.33 K/mm3 (0.84-5.20); LYMPHOCYTES PERCENT AUTO 15 % (21-46); MONOCYTES ABSOLUTE AUTO 1.21 K/mm3 (0.16-1.47); MONOCYTES PERCENT AUTO 8 % (4-13); Mean Corpuscular HGB 31.2 pg (26.0-34.0); Mean Corpuscular HGB Conc 34.8 g/dL (31.5-36.5); Mean Corpuscular Volume 90 fL (80-100); Mean Platelet Volume 9.3 fL (9.1-12.4); NEUTROPHILS ABSOLUTE AUTO 11.98 K/mm3 (1.96-9.15); NEUTROPHILS PERCENT AUTO 76 % (41-73); Platelet Count 332 K/mm3 (150-400); RDW Coefficient Variation 13.4 % (11.7-14.2); RDW Standard Deviation 44.7 fL (35.1-46.3); White Blood Cell Count 15.78 K/mm3 (4.00-11.30)
[2022-05-17 10:05] LABS: C-REACTIVE PROTEIN, EXT RANGE 4.18 mg/dL (0.000-0.300)
[2022-05-17 10:06] LABS: Bun/Creatinine Ratio 30.3 (12.0-20.0); Calcium, Blood 9.5 mg/dL (8.5-10.1); Creatinine, Blood 0.92 mg/dL (0.60-1.20)
--- NOTE | 2022-05-17 13:26 | NUR ---
ADMISSION: REPORT RECEIVED AT BEDSIDE BY DAY SURGERY RN. VSS, A/O. PT REPORTS 10/23 PAIN AT ABSCESS SITE, MEDICATED PER EMAR. DAY SURGERY RN REPORTS THAT PT MED REC COMPLETED. CALL LIGHT IN REACH, WILL CTM
--- NOTE | 2022-05-17 18:19 | NUR ---
SUMMARY: NO CHANGE SINCE ADMISSION: VSS, A/O. IV ANTIBIOTICS INFUSING. PT MEDICATED FOR PAIN PER EMAR. PT CBG 64 TONIGHT, GIVEN ADA DINNER AND SNACKS. NO SIGNS OR SX OF HYPOGLYCEMIA CURRENTLY. WILL RECHECK AT BEDTIME PER ORDER. PT AT BEDSIDE TONIGHT AND IS UPDATED ON PLAN OF CARE. NO ACUTE CONCERNS, WILL PASS REPORT TO AYSE RN.
--- NOTE | 2022-05-18 04:24 | NUR ---
VSS. PT SLEPT ON AND OFF T/O THE NIGHT. PAIN DIFFICULT TO CONTROL, MEDICATED FOR PAIN WITH MORPHINE AND OXY. PT VOIDING INTO URINAL AT BEDSIDE W/O DIFFICULTY. PT STATED HE WAS TOLD HE WOULD NOT HAVE SURGERY UNTIL SUNDAY D/T XERALTO USE. PERIRECTAL AREA NOTED TO BE RED AND INFLAMMED, PT REFUSED COLD/HEAT THERAPY. STATING IT MADE THE AREA HURT WORSE. PLAN TO CONTINUE ABX AND PAIN CONTROL. THE PATIENT IS RESTING, IN NO DISTRESS, CALL LIGHT IN REACH
[2022-05-18 04:46] LABS: BASOPHILS PERCENT AUTO 1 % (0-2); EOSINOPHILS PERCENT AUTO 1 % (0-6); Hemoglobin 12.9 g/dL (13.5-17.5); IMMATURE GRAN ABSOLUTE AUTO 0.04 K/mm3 (0.00-0.10); IMMATURE GRAN PERCENT AUTO 0 % (0-1); LYMPHOCYTES ABSOLUTE AUTO 1.39 K/mm3 (0.84-5.20); LYMPHOCYTES PERCENT AUTO 9 % (21-46); MONOCYTES PERCENT AUTO 9 % (4-13); Mean Corpuscular HGB 31.2 pg (26.0-34.0); Mean Corpuscular HGB Conc 34.9 g/dL (31.5-36.5); Mean Corpuscular Volume 89 fL (80-100); Mean Platelet Volume 9.4 fL (9.1-12.4); NEUTROPHILS ABSOLUTE AUTO 12.12 K/mm3 (1.96-9.15); NEUTROPHILS PERCENT AUTO 81 % (41-73); Platelet Count 332 K/mm3 (150-400); RDW Coefficient Variation 13.4 % (11.7-14.2); RDW Standard Deviation 43.9 fL (35.1-46.3); Red Blood Cell Count 4.14 M/mm3 (4.30-5.90); White Blood Cell Count 15.05 K/mm3 (4.00-11.30)
[2022-05-18 05:09] LABS: Albumin/Globulin Ratio 0.8 (0.8-1.8); Bilirubin, Total 0.9 mg/dL (0.1-1.0); Calcium, Blood 9.1 mg/dL (8.5-10.1); Globulin, Blood 3.8 g/dL (2.2-4.0); Potassium, Blood 3.6 mmol/L (3.5-5.5); Total Protein, Blood 6.8 g/dL (6.4-8.2)
--- NOTE | 2022-05-18 09:54 | NUR ---
ABSCESS RUPTURED/DRAINED 0940 THIS RN WAS IN ROOM WHEN PATIENT REPORTED THAT PERINEAL ABSCESS HAD JUST RUPTURED. NOTED SIGNIFICANT PURULENT AND RED DRAINAGE ON BED PAD. UNABLE TO IDENTIFY EXACT LOCATION OF RUPTURE IN PERINEAL AREA. PATIENT REPORTED FEELING OF PRESSURE RELIEF. BED LINENS AND GOWN CHANGED. PROVIDED MESH UNDERWEAR AND GAUZE PAD TO PATIENT. NO CONTINUING DRAINAGE NOTED AT THIS TIME. DR FELICIANO NOTIFIED. HE STATED HE WILL COME SEE PATIENT AFTER HIS CURRENT OR CASE.
--- NOTE | 2022-05-18 19:19 | NUR ---
SHIFT SUMMARY PATIENT ALERT AND ORIENTED. PERINEAL ABSCESS RED AND SWOLLEN AND PAINFUL BETWEEN SCROTUM AND ANUS. SPONTANEOUSLY RUPTURED AND DRAINED ABOUT 0940. DR FELICIANO NOTIFIED. PATIENT TO OR FOR I&D AT 1200. RETURNED TO ROOM FROM PACU WITH TOBIN DRAIN. ALERT AND ORIENTED. BLOOD PRESSURE SOFT IN 90S SYSTOLIC. IV FLUID RUNNING. TOLERATING ADA DIET AND ORAL FLUIDS. MEDICATED FOR PAIN WITH TORADOL. GAUZE, ABD, AND MESH UNDERWEAR DRESSING TO PERINEAL AREA. MODERATE AMOUNT OF SS DRAINAGE. DRESSING CHANGED PRN. SPOUSE ATTENTIVE IN ROOM DURING DAY. REPORT GIVEN TO CHAIRMAN.
--- NOTE | 2022-05-19 04:11 | NUR ---
POD1 FOR JAD RECTAL ABSCESS I&D. VSS. SANGUINEOUS DRAINAGE NOTED T/O THE NIGHT, MIN-MOD AMOUNT NOTED. NO PURULENCE NOTED. TOBIN REMAINS PATENT. PT MEDICATED FOR PAIN T/O THE NIGHT WITH PRN'S. PT SLEPT ON AND OFF. VOIDING W/O DIFFICULTY INTO URINAL, NO BM'S. PT REQUESTED TO HAVE DRESSINGS CHANGED TWICE FOR COMFORT D/T MOISTURE. NO ACUTE EVENTS NOTED T/O THE NIGHT. THE PATIENT IS CURRENTLY RESTING IN BED, IN NO DISTRESS, CALL LIGHT IN REACH
[2022-05-19 06:10] LABS: BASOPHILS ABSOLUTE AUTO 0.05 K/mm3 (0.00-0.23); BASOPHILS PERCENT AUTO 0 % (0-2); EOSINOPHILS ABSOLUTE AUTO 0.02 K/mm3 (0.00-0.68); EOSINOPHILS PERCENT AUTO 0 % (0-6); Hematocrit 28.6 % (37.0-53.0); Hemoglobin 10.2 g/dL (13.5-17.5); IMMATURE GRAN ABSOLUTE AUTO 0.04 K/mm3 (0.00-0.10); IMMATURE GRAN PERCENT AUTO 0 % (0-1); LYMPHOCYTES PERCENT AUTO 19 % (21-46); MONOCYTES ABSOLUTE AUTO 0.75 K/mm3 (0.16-1.47); MONOCYTES PERCENT AUTO 7 % (4-13); Mean Corpuscular HGB Conc 35.7 g/dL (31.5-36.5); Mean Corpuscular Volume 90 fL (80-100); Mean Platelet Volume 9.3 fL (9.1-12.4); NEUTROPHILS ABSOLUTE AUTO 8.22 K/mm3 (1.96-9.15); NEUTROPHILS PERCENT AUTO 74 % (41-73); Platelet Count 270 K/mm3 (150-400); RDW Coefficient Variation 13.3 % (11.7-14.2); RDW Standard Deviation 43.9 fL (35.1-46.3); Red Blood Cell Count 3.19 M/mm3 (4.30-5.90); White Blood Cell Count 11.18 K/mm3 (4.00-11.30)
[2022-05-19 06:23] LABS: Bun/Creatinine Ratio 22.6 (12.0-20.0); Calcium, Blood 8.7 mg/dL (8.5-10.1); Creatinine, Blood 1.15 mg/dL (0.60-1.20); Potassium, Blood 3.8 mmol/L (3.5-5.5)
[2022-05-19] MEDS ORDERED: OXAYDO5 M1 PO (11:42)
[2022-05-19] MEDS ORDERED: AMOCLA875 PO (11:43)
--- NOTE | 2022-05-19 12:53 | NUR ---
DISCHARGE SUMMARY PATIENT ALERT AND ORIENTED. TOLERATING ADA DIET AND LIQUIDS. NOTED REDNESS AND SWELLING TO PERIRECTAL AREA, TOBIN IN PLACE AND DRAINING SMALL AMOUNT SS DRAINAGE INTO PULL UPS. PAIN CONTROLLED WITH PO PAIN MEDS. ROUTINE IV ABX. SEEN IN ROOM BY DR FELICIANO. CLEARED FOR DISCHARGE FROM SURGERY STANDPOINT. SEEN IN ROOM BY DR MILLER WHO PLACED DISCHARGE ORDERS. DISCHARGE EDUCATION GIVEN ON NEW MEDS, WOUND/ABSCESS CARE, AND FOLLOW UP APPTS. IV DC'D WNL. PATIENT LEFT UNIT AT 1245 VIA WHEELCHAIR FOR HOME WITH SPOUSE.
== END 2022-05-19 12:45 | disposition home or self-care (01) | DRG 603 ==
LOC: ER 08:15 → SURS 08:16
PROVIDERS: Student in an Organized Health Care Education/Training Program; Surgery; ADMIT Internal Medicine
PROC: 0J9B0ZZ Drainage of Perineum Subcutaneous Tissue and Fascia, Open Approach (ICD-10-PCS; principal; 2022-05-18 12:30)
DX: L02.215 Cutaneous abscess of perineum (principal); K86.1 Other chronic pancreatitis; J96.10 Chronic respiratory failure, unspecified whether with hypoxia or hypercapnia; K76.0 Fatty (change of) liver, not elsewhere classified; E78.5 Hyperlipidemia, unspecified; F41.9 Anxiety disorder, unspecified; E11.51 Type 2 diabetes mellitus with diabetic peripheral angiopathy without gangrene; L03.315 Cellulitis of perineum; K21.9 Gastro-esophageal reflux disease without esophagitis; J43.9 Emphysema, unspecified; K72.90 Hepatic failure, unspecified without coma; B96.6 Bacteroides fragilis [B. fragilis] as the cause of diseases classified elsewhere; Z79.01 Long term (current) use of anticoagulants; Z88.8 Allergy status to other drugs, medicaments and biological substances; Z91.018 Allergy to other foods; Z79.899 Other long term (current) drug therapy; Z79.4 Long term (current) use of insulin; Z79.84 Long term (current) use of oral hypoglycemic drugs; Z98.890 Other specified postprocedural states; Z79.51 Long term (current) use of inhaled steroids; Z89.412 Acquired absence of left great toe; Z90.49 Acquired absence of other specified parts of digestive tract
CPT/HCPCS: 36415; 72193; 80048; 80053; 82947; 85025; 85651; 86140; 87070; 87075; 87076; 87185; 87205; 94760; 94762; 96365; 96366; 96375; 96376; 99284-25; A9270; G0378; J1100; J1815; J1885; J2250; J2270; J2370; J2405; J2543; J2704; J3010; J3370; J7050; J7120; J7799; Q9967

== ENCOUNTER 2022-06-05 10:59 | Emergency (ER) | payer MEDICARE ==
[~2022-06-05] VITALS: Ht 175.3 cm; Wt 56.2 kg
[~2022-06-05 10:59] MED LIST changes: +A AND D OINTM42.5 GM; +AMOCLA875 PO; +Alph-E-Mixed400 UNIT; +CREON DR 36,001 EACH PO; +OXAYDO5 M1 PO
[2022-06-05 11:37] LABS: BASOPHILS ABSOLUTE AUTO 0.12 K/mm3 (0.00-0.23); BASOPHILS PERCENT AUTO 1 % (0-2); EOSINOPHILS ABSOLUTE AUTO 0.13 K/mm3 (0.00-0.68); EOSINOPHILS PERCENT AUTO 1 % (0-6); Hematocrit 39.3 % (37.0-53.0); Hemoglobin 13.4 g/dL (13.5-17.5); IMMATURE GRAN ABSOLUTE AUTO 0.02 K/mm3 (0.00-0.10); IMMATURE GRAN PERCENT AUTO 0 % (0-1); LYMPHOCYTES ABSOLUTE AUTO 3.01 K/mm3 (0.84-5.20); LYMPHOCYTES PERCENT AUTO 29 % (21-46); MONOCYTES ABSOLUTE AUTO 0.69 K/mm3 (0.16-1.47); MONOCYTES PERCENT AUTO 7 % (4-13); Mean Corpuscular HGB 31.5 pg (26.0-34.0); Mean Corpuscular HGB Conc 34.1 g/dL (31.5-36.5); Mean Corpuscular Volume 93 fL (80-100); Mean Platelet Volume 9.1 fL (9.1-12.4); NEUTROPHILS ABSOLUTE AUTO 6.31 K/mm3 (1.96-9.15); NEUTROPHILS PERCENT AUTO 61 % (41-73); Platelet Count 451 K/mm3 (150-400); RDW Coefficient Variation 13.8 % (11.7-14.2); RDW Standard Deviation 46.9 fL (35.1-46.3); Red Blood Cell Count 4.25 M/mm3 (4.30-5.90); White Blood Cell Count 10.28 K/mm3 (4.00-11.30)
[2022-06-05 11:55] LABS: Bilirubin, Total 0.3 mg/dL (0.1-1.0); Bun/Creatinine Ratio 30.6 (12.0-20.0); Calcium, Blood 9.5 mg/dL (8.5-10.1); Creatinine, Blood 0.82 mg/dL (0.60-1.20)
[2022-06-05] MEDS ORDERED: AMOCLA875 PO (15:14)
[2022-06-05] MEDS ORDERED: Percocet 5-3251 EACH PO (15:14)
== END 2022-06-05 16:10 | disposition home or self-care (01) ==
LOC: ER 10:59
PROVIDERS: Physician Assistant
DX: K61.1 Rectal abscess (principal); Z87.891 Personal history of nicotine dependence
CPT/HCPCS: 36415; 72193; 80053; 85025; A9270; J1170; J2405; Q9967

== ENCOUNTER 2022-06-26 06:45 | Day surgery (SDC) | payer MEDICARE ==
[~2022-06-26] VITALS: Ht 175.3 cm; Wt 55.9 kg
[~2022-06-26 06:45] MED LIST changes: +Percocet 5-3251 EACH PO
--- NOTE | 2022-06-26 07:29 | NUR ---
Ambulatory in Day Surgery History, Chart, Medications and Allergies reviewed before start of procedure. Lungs clear T/O to Auscultation. Pre-Op teaching done. Pt verbalizes understanding. Patient States Post-Procedure ride home has been arranged.
--- NOTE | 2022-06-26 10:55 | NUR ---
Patient up to Ambulate independently. Gait steady. Discharge instructions reviewed with patient. Patient verbalizes understanding. Copy given to patient to take home. Patient States Post-Procedure ride home has been arranged. Discharged via wheelchair to private car for ride home. DISCUSSED PT'S POST-OP MEDICATIONS WITH DR FELICIANO,SEE ORDERS. PT/ REPORTS SPOKE WITH THEM REGARDING MEDICATIONS (PLAVIX AND XERALTO).
== END 2022-06-26 10:55 | disposition home or self-care (01) ==
LOC: ORSCMMR 06:45 → ORD 08:00 → ORSCMMR 08:00
PROVIDERS: Surgery
PROC: 0H99XZZ Drainage of Perineum Skin, External Approach (ICD-10-PCS; principal; 2022-06-26 08:00)
DX: L02.215 Cutaneous abscess of perineum (principal); I10 Essential (primary) hypertension; E11.9 Type 2 diabetes mellitus without complications; J44.9 Chronic obstructive pulmonary disease, unspecified; E78.5 Hyperlipidemia, unspecified; Z87.891 Personal history of nicotine dependence; I25.2 Old myocardial infarction; Z79.4 Long term (current) use of insulin; Z79.899 Other long term (current) drug therapy; Z79.01 Long term (current) use of anticoagulants; Z79.02 Long term (current) use of antithrombotics/antiplatelets
CPT/HCPCS: 82947; 88305; A9270; J0295; J1100; J2250; J2370; J2405; J2704; J2795; J3010; J7120

== ENCOUNTER 2022-07-05 00:35 | Day surgery (SDC) | payer MEDICARE | END 2022-07-05 23:30 | disposition home or self-care (01) | LOC: WOUND 00:35 | DX: T81.32XA Disruption of internal operation (surgical) wound, not elsewhere classified, initial encounter (principal); E11.21 Type 2 diabetes mellitus with diabetic nephropathy; I10 Essential (primary) hypertension; F41.9 Anxiety disorder, unspecified; E11.51 Type 2 diabetes mellitus with diabetic peripheral angiopathy without gangrene | CPT/HCPCS: A9270 ==

== ENCOUNTER 2022-07-12 03:35 | Day surgery (SDC) | payer MEDICARE | END 2022-07-12 23:01 | disposition home or self-care (01) | LOC: WOUND 03:35 | DX: Z48.01 Encounter for change or removal of surgical wound dressing (principal); E11.21 Type 2 diabetes mellitus with diabetic nephropathy; T81.31XD Disruption of external operation (surgical) wound, not elsewhere classified, subsequent encounter; I10 Essential (primary) hypertension; F41.9 Anxiety disorder, unspecified; E11.51 Type 2 diabetes mellitus with diabetic peripheral angiopathy without gangrene; E11.628 Type 2 diabetes mellitus with other skin complications | CPT/HCPCS: G0463 ==

== ENCOUNTER 2022-07-19 02:17 | Day surgery (SDC) | payer MEDICARE | END 2022-07-19 23:05 | disposition home or self-care (01) | LOC: WOUND | DX: T81.31XD Disruption of external operation (surgical) wound, not elsewhere classified, subsequent encounter (principal); Y83.8 Other surgical procedures as the cause of abnormal reaction of the patient, or of later complication, without mention of misadventure at the time of the procedure; I10 Essential (primary) hypertension; F41.9 Anxiety disorder, unspecified; E11.59 Type 2 diabetes mellitus with other circulatory complications; E11.51 Type 2 diabetes mellitus with diabetic peripheral angiopathy without gangrene | CPT/HCPCS: A9270; G0463 ==

== ENCOUNTER 2022-07-26 02:35 | Day surgery (SDC) | payer MEDICARE | END 2022-07-26 22:56 | disposition home or self-care (01) | LOC: WOUND 02:35 | DX: S31.30XA Unspecified open wound of scrotum and testes, initial encounter (principal); E11.59 Type 2 diabetes mellitus with other circulatory complications; T81.31XA Disruption of external operation (surgical) wound, not elsewhere classified, initial encounter; I10 Essential (primary) hypertension; F41.9 Anxiety disorder, unspecified; I73.9 Peripheral vascular disease, unspecified; X58.XXXA Exposure to other specified factors, initial encounter | CPT/HCPCS: A9270; G0463 ==

== ENCOUNTER 2022-08-02 01:14 | Day surgery (SDC) | payer MEDICARE | END 2022-08-02 23:05 | disposition home or self-care (01) | LOC: WOUND 01:14 | DX: T81.31XA Disruption of external operation (surgical) wound, not elsewhere classified, initial encounter (principal); S31.30XA Unspecified open wound of scrotum and testes, initial encounter; E11.59 Type 2 diabetes mellitus with other circulatory complications; I10 Essential (primary) hypertension; F41.9 Anxiety disorder, unspecified; I73.9 Peripheral vascular disease, unspecified; Y83.8 Other surgical procedures as the cause of abnormal reaction of the patient, or of later complication, without mention of misadventure at the time of the procedure | CPT/HCPCS: A9270; G0463 ==

== ENCOUNTER 2022-08-09 02:37 | Day surgery (SDC) | payer MEDICARE | END 2022-08-09 23:33 | disposition home or self-care (01) | LOC: WOUND 02:37 | DX: S31.501D Unspecified open wound of unspecified external genital organs, male, subsequent encounter (principal); T81.31XD Disruption of external operation (surgical) wound, not elsewhere classified, subsequent encounter; X58.XXXD Exposure to other specified factors, subsequent encounter; E11.59 Type 2 diabetes mellitus with other circulatory complications; I10 Essential (primary) hypertension; F41.9 Anxiety disorder, unspecified; E11.51 Type 2 diabetes mellitus with diabetic peripheral angiopathy without gangrene | CPT/HCPCS: A9270; G0463 ==

== ENCOUNTER 2022-08-16 03:14 | Day surgery (SDC) | payer MEDICARE, OTHER | END 2022-08-16 22:47 | disposition home or self-care (01) | LOC: WOUND 03:14 | DX: S31.30XD Unspecified open wound of scrotum and testes, subsequent encounter (principal); X58.XXXD Exposure to other specified factors, subsequent encounter; T81.31XD Disruption of external operation (surgical) wound, not elsewhere classified, subsequent encounter; E11.59 Type 2 diabetes mellitus with other circulatory complications; I10 Essential (primary) hypertension; F41.9 Anxiety disorder, unspecified; E11.51 Type 2 diabetes mellitus with diabetic peripheral angiopathy without gangrene | CPT/HCPCS: G0463 ==

== ENCOUNTER → 2023-03-20 | Outpatient (CLI) | payer MEDICARE ==
[~2023-03-20] MED LIST changes: +Ativan1 MG PO; +Crestor20 MG PO
== END | disposition home or self-care (01) ==
LOC: LAB 13:31 → LAB SHORT 13:31
DX: C10.9 Malignant neoplasm of oropharynx, unspecified (principal)
CPT/HCPCS: 88305; 88342

== ENCOUNTER 2023-03-30 07:09 | Day surgery (SDC) | payer MEDICARE ==
[~2023-03-30] VITALS: Ht 175.3 cm; Wt 54.7 kg
[~2023-03-30 07:09] MED LIST changes: -Ativan1 MG PO; -Crestor20 MG PO
[2023-03-30] MEDS ORDERED: Ativan1 MG PO (07:58)
[2023-03-30] MEDS ORDERED: NITR.4SL SL (07:59)
[2023-03-30] MEDS ORDERED: Crestor20 MG PO (07:59)
--- NOTE | 2023-03-30 09:23 | NUR ---
03/30/23 0923 Elda Carlton IV DC'D, CATH INTACT. PT TOLERATED WELL. COBAN/GAUZE IN PLACE
[2023-03-30 09:24] VITALS: BP 113/75
== END 2023-03-30 09:24 | disposition home or self-care (01) ==
LOC: ORSCSDS 07:09
PROVIDERS: Surgery
PROC: 0DH68UZ Insertion of Feeding Device into Stomach, Via Natural or Artificial Opening Endoscopic (ICD-10-PCS; principal; 2023-03-30 08:30)
DX: C09.9 Malignant neoplasm of tonsil, unspecified (principal); F17.210 Nicotine dependence, cigarettes, uncomplicated; J44.9 Chronic obstructive pulmonary disease, unspecified; E11.9 Type 2 diabetes mellitus without complications; G40.909 Epilepsy, unspecified, not intractable, without status epilepticus; I10 Essential (primary) hypertension; Z79.02 Long term (current) use of antithrombotics/antiplatelets; Z79.899 Other long term (current) drug therapy; Z79.84 Long term (current) use of oral hypoglycemic drugs
CPT/HCPCS: 82947; C1769; J0690; J2704; J7120

== ENCOUNTER 2024-02-08 07:00 | Day surgery (SDC) | payer MEDICARE ==
[~2024-02-08] VITALS: Ht 175.3 cm; Wt 54.0 kg
[2024-02-08] VITALS (11 sets, daily range): BP systolic 116–148; BP diastolic 70–83
[~2024-02-08 07:00] MED LIST changes: +Ativan1 MG PO; -BASAGLAR K100 UNIT/8; +BASAGLAR K100 UNIT/8 SC; +CeFAZolin Sodium 2,000 MG in NS 100 ML IV SCH; +Crestor20 MG PO; +FAMO40 PO; +Lactated Ringer's 1,000 ML IV SCH; +PANT40; +ROSUVASTATIN CA20 MG PO; +XCELLENT A 33000 MCG; +ZYRTEC10 M1 PO
--- NOTE | 2024-02-08 07:59 | NUR ---
History, Chart, Medications and Allergies reviewed before start of procedure. Patient up to Ambulate independently. Gait steady. Pre-Op teaching done. Pt verbalizes understanding. Patient confirms NPO status and agrees with scheduled surgery. Patient reports completing Chlorhexadine shower X2 prior to admission to hospital. Surgical site prepped with 2% Chlorhexidine cloth wipe. Patient States Post-Procedure ride home has been arranged.
[2024-02-08] MEDS ORDERED: Bupivacaine 0.5% HCl 5 MG/ML 30MLVIAL ONE (09:06)
[2024-02-08] MEDS ORDERED: propofoL 50 ML IV ONE (09:12)
[2024-02-08] MEDS ORDERED: FentaNYL Citrate 50 MCG/ML 2 ML Injection ONE (09:20)
[2024-02-08] MEDS ORDERED: Dexamethasone Sod Phos 10 MG/ML 1ML VIAL ONE (09:46)
[2024-02-08] MEDS ORDERED: Ondansetron HCl 2 MG / ML 2ML Vial ONE (09:46)
[2024-02-08] MEDS ORDERED: propofoL 20 ML IV ONE (10:01)
[2024-02-08] MEDS ORDERED: HYDROcodone 5-APAP 325 TAB PO PRN (10:30)
--- NOTE | 2024-02-08 10:58 | NUR ---
REPORT RECEIVED FROM VIJAY DE LA CRUZ. VSS. PT ON RA. PT A&OX4. PT ABLE TO REPOSITION SELF IN BED. PT DENIES PAIN, NAUSEA OR OTHER DISCOMFORTS. AWAITING RESULTS FROM XRAY BEFORE PO FOOD/FLUIDS. PT HAS GAUZE/TEGADERM OVER SURGICAL SITE ON RIGHT SIDE OF CHEST, STERI STRIP TO RIGHT SIDE OF NECK. DRESSINGS ARE C/D/I WITHOUT DRAINAGE, REDNESS, OR SWELLING.
--- NOTE | 2024-02-08 11:15 | NUR ---
DR CORTEZ VERIFIES MEDIPORT PLACEMENT
--- NOTE | 2024-02-08 11:31 | NUR ---
XRAY CONFIRMED. PT FADY PO FOOD/FLUIDS. Patient up to Ambulate independently. Gait steady. VSS AND CONSISTENT WITH PT BASELINE. PT HAS NO COMPLAINTS AND VERBALIZES READINESS TO GO HOME. Discharge instructions reviewed with patient. Patient verbalizes understanding. Copy given to patient to take home. Dressing to procedure site clean, dry, intact with no visible drainage, swelling, erythema or bruising noted. Patient States Post-Procedure ride home has been arranged. Discharged via wheelchair to private car for ride home. PT BELONGINGS RETURNED TO PT.
== END 2024-02-08 11:35 | disposition home or self-care (01) ==
LOC: ORSCMMR 07:00 → ORD 08:30 → ORSCMMR 11:35
PROVIDERS: Surgery
PROC: 0JH63WZ Insertion of Totally Implantable Vascular Access Device into Chest Subcutaneous Tissue and Fascia, Percutaneous Approach (ICD-10-PCS; principal; 2024-02-08 08:30)
DX: C34.12 Malignant neoplasm of upper lobe, left bronchus or lung (principal); Z79.02 Long term (current) use of antithrombotics/antiplatelets; E78.5 Hyperlipidemia, unspecified; I12.9 Hypertensive chronic kidney disease with stage 1 through stage 4 chronic kidney disease, or unspecified chronic kidney disease; E11.22 Type 2 diabetes mellitus with diabetic chronic kidney disease; N18.9 Chronic kidney disease, unspecified; F41.9 Anxiety disorder, unspecified; Z87.891 Personal history of nicotine dependence; Z79.01 Long term (current) use of anticoagulants; Z79.4 Long term (current) use of insulin; Z79.899 Other long term (current) drug therapy
CPT/HCPCS: 77001; 82947; C1788; J0690; J1100; J1642; J2405; J2704; J3010; J7120

== ENCOUNTER 2024-06-30 05:35 | Inpatient (IN) | payer MEDICARE ==
[~2024-06-30] VITALS: Ht 175.3 cm; Wt 56.9 kg
[~2024-06-30 05:35] MED LIST changes: -ALDACTONE100 MG PO; -CeFAZolin Sodium 2,000 MG in NS 100 ML IV SCH; -Lactated Ringer's 1,000 ML IV SCH; +SPIR50 PO
[2024-06-30 06:14] LABS: BASOPHILS ABSOLUTE AUTO 0.06 K/mm3 (0.00-0.23); BASOPHILS PERCENT AUTO 1 % (0-2); EOSINOPHILS PERCENT AUTO 1 % (0-6); Hematocrit 35.2 % (37.0-53.0); Hemoglobin 12.4 g/dL (13.5-17.5); IMMATURE GRAN ABSOLUTE AUTO 0.01 K/mm3 (0.00-0.10); IMMATURE GRAN PERCENT AUTO 0 % (0-1); LYMPHOCYTES ABSOLUTE AUTO 1.11 K/mm3 (0.84-5.20); LYMPHOCYTES PERCENT AUTO 16 % (21-46); MONOCYTES ABSOLUTE AUTO 0.77 K/mm3 (0.16-1.47); MONOCYTES PERCENT AUTO 11 % (4-13); Mean Corpuscular HGB Conc 35.2 g/dL (31.5-36.5); Mean Corpuscular Volume 94 fL (80-100); Mean Platelet Volume 8.6 fL (9.1-12.4); NEUTROPHILS ABSOLUTE AUTO 5.06 K/mm3 (1.96-9.15); NEUTROPHILS PERCENT AUTO 71 % (41-73); Platelet Count 265 K/mm3 (150-400); RDW Coefficient Variation 12.7 % (11.7-14.2); RDW Standard Deviation 43.9 fL (35.1-46.3); Red Blood Cell Count 3.76 M/mm3 (4.30-5.90); White Blood Cell Count 7.11 K/mm3 (4.00-11.30)
[2024-06-30 06:39] LABS: Albumin, Blood 3.7 g/dL (3.4-5.0); Albumin/Globulin Ratio 1.1 (0.8-1.8); Bilirubin, Total 0.3 mg/dL (0.1-1.0); Bun/Creatinine Ratio 12.8 (12.0-20.0); Calcium, Blood 8.5 mg/dL (8.5-10.1); Creatinine, Blood 1.87 mg/dL (0.60-1.20); Globulin, Blood 3.5 g/dL (2.2-4.0); Potassium, Blood 3.7 mmol/L (3.5-5.5); Total Protein, Blood 7.2 g/dL (6.4-8.2)
[2024-06-30] MEDS ORDERED: HYDROmorphone HCl/Pf 1MG SYR IV ONE ×3 (07:10→09:50)
[2024-06-30 07:58] LABS: International Normalized Ratio 1.06; Prothrombin Time Results 11.3 Sec (9.7-11.5)
[2024-06-30] MEDS ORDERED: Heparin Sodium,Porcine/0.5 NS 500 ML IV SCH (08:30)
[2024-06-30] MEDS ORDERED: XARELTO20 MG PO (09:54)
[2024-06-30] MEDS ORDERED: LEVSOD75 PO (09:54)
[2024-06-30] MEDS ORDERED: ALBU90OI INH (09:54)
[2024-06-30] MEDS ORDERED: NS 1,000 ML IV SCH (11:45)
[2024-06-30] MEDS ORDERED: FLU VACC TS2024-25(6MOS UP)/PF 45 MCG/0.5 ML SYRINGE IM SCH (11:45)
[2024-06-30] MEDS ORDERED: ZYRTEC10 M2 PO (12:25)
[2024-06-30] MEDS ORDERED: HYDROmorphone HCl/Pf 1MG SYR IV PRN (13:00)
[2024-06-30 15:38] VITALS: BP 124/69
[2024-06-30] MEDS ORDERED: Dose Adjust by Pharmacy XX STA (15:47)
--- NOTE | 2024-06-30 17:35 | NUR ---
PT ARRIVED IN THE UNIT FROM [facility], PT IS HERE FOR CRITICAL LIMB (LEFT) ISCHEMIA. PT HAS PAIN 7-9/10 ON LLE DIALUDID 1MG IV HAS BEEN GIVEN FOR PAIN. LLE RED AND PAINFUL TO TOUCH. UNABLE TO HEAR PULSE VIA DOPPLER. DR CAMPO IS CONSULTED CALLED AND WAS GIVEN UPDATE REGARDING PT'S STATUS PROVIDER TO COME SEE PT TONIGHT. PT HAS BEEN PLEASANT AND COOPERATIVE WITH MIN GODFREY ACCESSED. VITALS HRR SR 60'S, SBP 120'S, SATS ABOVE 95% ON RA, AFEBRILE. PT ABLE TO MOVE INDEPENDENTLY IN BED, BEDREST AT THIS TIME DUE TO PAIN. WILL WAIT FOR FURTHER INSTRUCTIONS FROM PROVIDER. PT CURRENTLY RESTING IN BED CALL LIGHTS IN REACH WILL REPORT TO ONCOMING SHIFT
[2024-06-30 19:20] VITALS: BP 130/80
[2024-06-30] MEDS ORDERED: Ondansetron 4 MG TAB PO PRN (20:05)
[2024-06-30] MEDS ORDERED: Albuterol HFA200 ACT/6.7 GM INH INH PRN (20:10)
[2024-06-30] MEDS ORDERED: Amylase/Lipase/Protease DR Cap 12,000 PO SCH (20:25)
[2024-06-30] MEDS ORDERED: Metoprolol Tartrate 25 MG Tab PO SCH (21:00)
[2024-06-30] MEDS ORDERED: Insulin Human Lispro 100 Units/ML 3ML Syringe SC SCH (21:00)
[2024-06-30] MEDS ORDERED: BusPIRone HCl 5 MG Tab PO SCH (21:00)
[2024-06-30 23:41] VITALS: BP 110/70
[2024-07-01] MEDS ORDERED: Dose Adjust by Pharmacy XX STA ×4 (01:13→18:52)
[2024-07-01 04:00] VITALS: BP 113/68
[2024-07-01 05:34] LABS: BASOPHILS ABSOLUTE AUTO 0.04 K/mm3 (0.00-0.23); BASOPHILS PERCENT AUTO 1 % (0-2); EOSINOPHILS ABSOLUTE AUTO 0.11 K/mm3 (0.00-0.68); EOSINOPHILS PERCENT AUTO 2 % (0-6); Hematocrit 30.6 % (37.0-53.0); Hemoglobin 10.7 g/dL (13.5-17.5); IMMATURE GRAN ABSOLUTE AUTO 0.01 K/mm3 (0.00-0.10); IMMATURE GRAN PERCENT AUTO 0 % (0-1); LYMPHOCYTES ABSOLUTE AUTO 1.15 K/mm3 (0.84-5.20); LYMPHOCYTES PERCENT AUTO 20 % (21-46); MONOCYTES PERCENT AUTO 10 % (4-13); Mean Corpuscular HGB 32.7 pg (26.0-34.0); Mean Corpuscular Volume 94 fL (80-100); Mean Platelet Volume 8.8 fL (9.1-12.4); NEUTROPHILS ABSOLUTE AUTO 3.96 K/mm3 (1.96-9.15); NEUTROPHILS PERCENT AUTO 67 % (41-73); Platelet Count 231 K/mm3 (150-400); RDW Coefficient Variation 12.7 % (11.7-14.2); Red Blood Cell Count 3.27 M/mm3 (4.30-5.90); White Blood Cell Count 5.87 K/mm3 (4.00-11.30)
[2024-07-01 05:59] LABS: Albumin, Blood 3.1 g/dL (3.4-5.0); Bilirubin, Total 0.3 mg/dL (0.1-1.0); Bun/Creatinine Ratio 12.7 (12.0-20.0); Calcium, Blood 8.4 mg/dL (8.5-10.1); Creatinine, Blood 1.34 mg/dL (0.60-1.20); Magnesium, Blood 1.9 mg/dL (1.6-2.4); Phosphorus, Blood 2.8 mg/dL (2.5-4.9); Potassium, Blood 3.8 mmol/L (3.5-5.5); Total Protein, Blood 6.1 g/dL (6.4-8.2)
[2024-07-01] MEDS ORDERED: Levothyroxine Sodium 0.075 MG Tab PO SCH (06:00)
--- NOTE | 2024-07-01 06:16 | NUR ---
SHIFT SUMMARY PT ALERT AND ORIENTED X4, FOLLOWS COMMANDS, ABLE TO MAKE NEEDS KNOWN, AFEBRILE, BP STABLE WITH MAP >65, SB/SR 40-60s, ASYMPTOMATIC WITH BRADYCARDIA, RESP EVEN AND UNLABORED ON RA, SPO2 >90%, VOIDS WITHOUT DIFFICULTY IN URINAL AT BEDSIDE, LLE REMAINS RED AND PAINFUL TO TOUCH AND WITH MOVEMENT, FAINT SLOW PEDAL PULSE, RLE WITH DOPPLER PULSE, COOL TO TOUCH, MEDIPORT TO RIGHT CHEST ACCESSED AND PATENT, PIV TO RIGHT WRIST PATENT, HEPARIN INFUSING AT 19 UNITS/KG/HR PER EMAR, NS INFUSING AT 50 ML/HR, PT MEDICATED X4 WITH DILAUDID FOR PAIN PER EMAR, ABLE TO MOVE INDEPENDENTLY IN BED, SIDE RAILS UP X2 CALL LIGHT IN REACH
[2024-07-01 07:25] VITALS: BP 154/72
[2024-07-01] MEDS ORDERED: Amylase/Lipase/Protease DR Cap 12,000 PO SCH (08:30)
[2024-07-01] MEDS ORDERED: Morphine Sulfate 10 MG/ML 1MLSYR IV PRN (08:40)
[2024-07-01] MEDS ORDERED: Clopidogrel Bisulfate 75 MG Tab PO SCH (09:00)
[2024-07-01] MEDS ORDERED: Insulin Glargine-Yfgn 100 Unit/mL 3 ML SYR SC SCH (09:00)
[2024-07-01] MEDS ORDERED: Famotidine 20 MG Tab PO SCH (09:00)
[2024-07-01 13:03] VITALS: BP 122/69
[2024-07-01 16:18] VITALS: BP 137/85
--- NOTE | 2024-07-01 16:35 | NUR ---
SHIFT SUMMARY: PT A&OX4. FOLLOWS COMMANDS AND MAKES NEED KNOWN TO STAFF. PT REMAINED FREE OF ANY CP OR SOB DURING SHIFT. PT DID REQUIRE FREQUENT PAIN MEDS FOR PAIN TO HIS L FOOT. PT LET THIS RN KNOW WHEN MEDS WERE NEEDED. REMAINED ON RA DURING SHIFT. IR CAME AND SAW PT AND IS GOING TO CONSULT DR ARAUJO FOR FURTHER INTERVENTIONS. THIS RN AND OTHER RN'S WERE ABLE TO FIND TIBIAL PULSE ON L FOOT BUT WERE UNABLE TO FIND PEDAL PULSE EVEN WITH DOPPLER. HEPARIN GTT CONTINUES. NS CONTINUES THROUGH MEDIPORT. NO OTHER SIGNIFICANT EVENTS HAPPENED DURING THIS SHIFT. REPORT TO CORNELL Reyna RN TO ASSUME CARE OF PT.
[2024-07-01] MEDS ORDERED: Rosuvastatin Calcium 10 MG Tab PO SCH (18:00)
--- NOTE | 2024-07-01 18:43 | NUR ---
SHIFT SUMMARY: ASSUMED CARE OF PT AFTER RECEIVING REPORT FROM LUIS ANTONIO Morse RN AT APPROX 1630. NO ACUTE CHANGES TO PT STATUS. PT MEDICATED PER EMAR. PT RESTING IN BED, CALL LIGHT IN REACH.
[2024-07-01 19:16] VITALS: BP 136/68
--- NOTE | 2024-07-01 20:10 | NUR ---
ASSUMPTION OF CARE PT A&O X4, CALM, COOPERTIVE TO CARE. HR IN THE 50'S, SINUS RHYTHM, HE DENIES CP/PRESSURE, NUMB/TINGLING. O2 >92% ON RA, DENIES ANY SOB. +BS, DENIES ANY N/V OR ABD PAIN. PT WITH REDDENED AREA TO THE RIGHT FOOT, OUTLINED, HE REPORTS MINIMAL PAIN TO RIGHT FOOT, FULL RANGE OF MOTION. LET LOWER EXTREMITY/FOOT, RED, PAINFUL, LIMITED ROM, MEDICATING PER EMAR. PT WITH MEDI PORT TO RIGHT SIDED CHEST, RUNNING FLUIDS PER EMAR, LEFT PIV INFUSING PER EMAR. PT RESTING IN BE AT THIS TIME. HE DENIES QUETIONS OR CONCERNS. CALL LIGHT IN REACH.
[2024-07-01 23:20] VITALS: BP 117/77
[2024-07-02] MEDS ORDERED: Dose Adjust by Pharmacy XX STA ×4 (01:49→23:44)
[2024-07-02 03:17] VITALS: BP 131/74
[2024-07-02 04:15] LABS: Hematocrit 28.6 % (37.0-53.0); Hemoglobin 10.2 g/dL (13.5-17.5); Mean Platelet Volume 9.1 fL (9.1-12.4); Platelet Count 237 K/mm3 (150-400)
[2024-07-02 04:59] VITALS: BP 172/75
--- NOTE | 2024-07-02 06:46 | NUR ---
SHIFT SUMMARY PT A&O X4, CALM, COOPERATIVE TO CARE. HR IN THE 50'S, SINUS RHYTHM, DENIES CP/PRESSURE, NUMB/TINGLING, SBP STABLE. 02 >92% ON RA, DENIES SOB. PT WITH PAIN T/O NIGHT, MEDICATED PER EMAR. LEFT FOOT STILL PAINFUL TO TOUCH, REDNESS UNCHANGED FROM MARKINGS. NO ACUTE CHANGES T/O SHIFT. HEPARIN INFUSING PER EMAR, NS RUNNING IN MEDIPORT PER EMAR. PT RESTING IN BED AT THIS TIME. WILL MONITOR AND REPORT TO ONCOMING RN.
[2024-07-02] MEDS ORDERED: Morphine Sulfate 15 MG TABCR PO SCH (11:00)
[2024-07-02] MEDS ORDERED: CREON 36000 UNIT PO PRN (12:30)
[2024-07-02] MEDS ORDERED: CREON 36000 UNIT PO SCH (12:30)
[2024-07-02 13:13] VITALS: BP 116/64
[2024-07-02 16:09] LABS: Anti-Xa UFH, PHA Monitoring 0.36 IU/mL
[2024-07-02 16:12] VITALS: BP 134/84
--- NOTE | 2024-07-02 18:34 | NUR ---
SHIFT SUMMARY: PT A&OX4. FOLLOWS COMMANDS AND MAKES NEEDS KNOWN TO STAFF. PT HAS COMPLAINED OF PAIN TO HIS L FOOT THROUGHOUT SHIFT AND WAS MEDICATED PER EMAR ORDERS. PT HAS REMAINED FREE REID CP, SOB, OR ANY OTHER COMPLAINTS. NO SIGNIFICANT EVENTS HAPPENED DURING THIS SHIFT. WILL CONTINUE TO CARE FOR PT TILL END OF SHIFT.
[2024-07-02 20:29] VITALS: BP 146/76
[2024-07-03] VITALS (30 sets, daily range): BP systolic 118–197; BP diastolic 71–99
--- NOTE | 2024-07-03 04:33 | NUR ---
SHIFT SUMMARY PATIENT ALERT AND ORIENTED X4. MEDICATED PER EMAR FOR PAIN. HAD NO COMPLAINTS OF PAIN OR CHEST PAIN. ON ROOM AIR WITH SPO2 >90%. VITAL SIGNS STABLE. NO ACUTE ISSUES NOTED OVERNIGHT. WILL CONTINUE TO MONITOR.
[2024-07-03 06:33] LABS: BASOPHILS ABSOLUTE AUTO 0.05 K/mm3 (0.00-0.23); BASOPHILS PERCENT AUTO 1 % (0-2); EOSINOPHILS ABSOLUTE AUTO 0.11 K/mm3 (0.00-0.68); EOSINOPHILS PERCENT AUTO 2 % (0-6); Hematocrit 28.1 % (37.0-53.0); IMMATURE GRAN ABSOLUTE AUTO 0.01 K/mm3 (0.00-0.10); IMMATURE GRAN PERCENT AUTO 0 % (0-1); LYMPHOCYTES ABSOLUTE AUTO 0.89 K/mm3 (0.84-5.20); LYMPHOCYTES PERCENT AUTO 15 % (21-46); MONOCYTES ABSOLUTE AUTO 0.61 K/mm3 (0.16-1.47); MONOCYTES PERCENT AUTO 10 % (4-13); Mean Corpuscular HGB 33.1 pg (26.0-34.0); Mean Corpuscular HGB Conc 35.6 g/dL (31.5-36.5); Mean Corpuscular Volume 93 fL (80-100); Mean Platelet Volume 8.8 fL (9.1-12.4); NEUTROPHILS ABSOLUTE AUTO 4.41 K/mm3 (1.96-9.15); NEUTROPHILS PERCENT AUTO 73 % (41-73); Platelet Count 226 K/mm3 (150-400); RDW Coefficient Variation 12.5 % (11.7-14.2); RDW Standard Deviation 42.7 fL (35.1-46.3); Red Blood Cell Count 3.02 M/mm3 (4.30-5.90); White Blood Cell Count 6.08 K/mm3 (4.00-11.30)
[2024-07-03 06:51] LABS: Albumin, Blood 2.8 g/dL (3.4-5.0); Bilirubin, Total 0.3 mg/dL (0.1-1.0); Bun/Creatinine Ratio 14.7 (12.0-20.0); Calcium, Blood 8.5 mg/dL (8.5-10.1); Creatinine, Blood 1.5 mg/dL (0.60-1.20); Globulin, Blood 2.9 g/dL (2.2-4.0); Potassium, Blood 4.1 mmol/L (3.5-5.5); Total Protein, Blood 5.7 g/dL (6.4-8.2)
[2024-07-03] MEDS ORDERED: Dose Adjust by Pharmacy XX STA (07:50)
[2024-07-03] MEDS ORDERED: Clarify Drug Order XX ONE (14:10)
[2024-07-03] MEDS ORDERED: Heparin Sodium 1000 Units/ML 10ML MDV ONE (14:23)
[2024-07-03] MEDS ORDERED: NS 250 ML IV ONE (14:23)
[2024-07-03] MEDS ORDERED: NS 1,000 ML IV ONE ×2 (14:23→14:41)
--- NOTE | 2024-07-03 14:34 | NUR ---
PT GONE TO HEART CENTER AT THIS TIME.
[2024-07-03] MEDS ORDERED: Midazolam HCl 1MG / ML 2ML Vial ONE ×2 (14:39→15:12)
[2024-07-03] MEDS ORDERED: FentaNYL Citrate 50 MCG/ML 2 ML Injection ONE ×2 (14:39→15:11)
[2024-07-03] MEDS ORDERED: Alteplase Recombinant 2 MG / Vial ONE (15:42)
[2024-07-03] MEDS ORDERED: Alteplase 1 MG/ML 25 MG in NS 250 ML IV SCH (15:55)
[2024-07-03] MEDS ORDERED: Heparin Sodium,Porcine/0.5 NS 500 ML IV SCH (16:00)
[2024-07-03] MEDS ORDERED: Alteplase 1 MG/ML 10 MG in NS 100 ML IV SCH (16:25)
--- NOTE | 2024-07-03 17:00 | NUR ---
TRANSFER TO ICU FROM HEART CENTER. REPORT GIVEN TO ACCEPTING RESEARCH HYDRAULIC ENGINEER.
[2024-07-03] MEDS ORDERED: Midazolam HCl 1MG / ML 2ML Vial IV PRN (17:30)
[2024-07-03] MEDS ORDERED: HydrALAZINE HCl 20 MG / ML 1ML Vial IV PRN (17:50)
[2024-07-03] MEDS ORDERED: HydrALAZINE HCl 20 MG / ML 1ML Vial IV ONE (19:05)
--- NOTE | 2024-07-03 19:37 | NUR ---
SHIFT SUMMARY AND HEMATOMA: NEURO: PATIENT TRANSFERRED FROM PCU VIA DATER ASSEMBLER TODAY AROUND 1615. PATIENT DROWSY UPON ARRIVAL AND QUICKLY BECAME ALERT THE PROCEDURAL MEDICATIONS WORE OFF. PATIENT REPORTED TENDERNESS IN HIS LEFT TOES. PATIENT REPORTED IMPROVED MOBILITY IN THE TOES ON HIS LEFT FOOT. CARDIAC: ACCESS CATHETER IN PLACE ON LEFT GROIN. TPA AND HEPARIN STARTED AND INFUSING PER ORDERS. PATIENT DEVELOPED HEMATOMA DISTAL TO THE INSERTION SITE. PRESSURE HELD FOR [address] ARAUJO NOTIFIED AND NEW ORDERS ENTERED. PATIENT RECEIVED HYDRALAZINE FOR ELEVATED BLOOD PRESSURES. RIGHT PEDIS PULSE OBTAINED WITH DOPPLER. FOOT APPEARS NORMAL COLOR FOR THE PATIENT. LEFT FOOT - PULSES NOT PALPABLE OR FOUND WITH DOPPLER, PER THE HEART CENTER RN, THIS WAS BASELINE FOR THIS PATIENT. LEFT POSTERIAL TIBIAL PULSES FOUND WITH DOPPLER. GI/: PATIENT TOLERATED PO INTAKE WITHOUT DIFFICULTY. PATIENT INITIALLY EXPERIENCED SOME RETENTION, WHICH RESOLVED WITHOUT FURTHER INTERVENTION. URINE WAS LIGHT, CLEAR YELLOW. PSYCHSOCIAL: PATIENT'S AT BEDSIDE. SHE IS ENCOURAGING AND COOPERATIVE. SHE ASSISTS HELP WITH HELPING THE PATIENT IN HIS CARE.
[2024-07-03] MEDS ORDERED: Ondansetron HCl 2 MG / ML 2ML Vial ONE (19:56)
--- NOTE | 2024-07-03 20:00 | NUR ---
ASSUMED CARE OF PT AT 1900. REPORT RECEIVED AT BEDSIDE. PT PRESENTS SUPINE WITH RN HOLDING DIRECT PRESSURE OVER ANTEGRADE ACCESS SHEATH PER LEFT GROIN. PT TOLERATING THIS FAIR. TOTAL HOLD BEING 25 MINUTES. WAS ABLE TO REDUCE HEMATOMA MOSTLY. WHILE WORKING WITH PT, HE SNEEZED WHEREAS HEMATOM STARTED TO FORM AGAIN. DIRECT PRESSURE HELD AGAIN FOR 15 MINUTES WHEREAS HEMOSTASIS ACHIEVED. WILL REVIEW CHART AND PLAN OF CARE FOR THIS PT.
[2024-07-03] MEDS ORDERED: Ondansetron HCl 2 MG / ML 2ML Vial IV PRN (20:05)
[2024-07-03 21:49] LABS: Hematocrit 33.6 % (37.0-53.0)
--- NOTE | 2024-07-03 23:00 | NUR ---
HAVE PLACED FEMSTOP TO LEFT GROIN JUST TO PRESSURE. NO AIR PLACED IN CUFF. PT HAS HAD EMESIS WHEREAS PRESSURE WAS NEEDED TO SITE. NO NEW HEMATOMA FORMED. DR Hicks HAS COME TO ROOM AND VISUALIZED GROIN SITE. NO NEW ORDERS RECEIVED. PT HAS BEEN MEDICATED AT APPROX 2 HOUR WITH MORPHINE. OF NOTE: HEART RATE CONTINUES TO BE ELEVATED 110'S TO 130'S. HAS BEEN MEDICATED WITH HYDRALAZINE EARLIER WHICH HAD HELPED BLOOD PRESSURE.
[2024-07-04] VITALS (76 sets, daily range): BP systolic 86–189; BP diastolic 60–100
[2024-07-04] MEDS ORDERED: HYDROmorphone HCl/Pf 1MG SYR IV PRN (02:35)
[2024-07-04] MEDS ORDERED: Labetalol HCL 5 MG/ML 4ML Injection (Single Dose) IV ONE (02:35)
--- NOTE | 2024-07-04 04:01 | NUR ---
CALL MADE TO DR VALDOVINOS CONCERNING PT INCREASING PAIN MEDICATION NEEDS. ORDERS RECEIVED FOR DILAUDID 0.5 MG Q 6 HOURS FOR BREAKTHROUGH PAIN. ALSO SECONDARY TO PT HOME MEDICATION LIST INDICATES PT TAKE METOPROLOL. THIS WAS ADDRESSED WITH DR VALDOVINOS WELL. ONE TIME ORDER FOR LABATELOL RECEIVED. THIS HAS NASIR THEART RATE DOWN TO 90'S. BLOOD PRESSURES REMAINED ELEVATED SOME. SEE VITAL SIGN FLOWSHEET FOR DETAILS. PT HAS, AFTER INITIAL STRAIGHT CATH, HAS HAD SOME BLEEDING FROM PENIS. DID EXPLAIN TO PT THAT THERE WAS HESITATION DURING STRAIGHT CATH AND THAT CATHETER TRAUMA, AND ANTICOAGULATION HAS MOST LIKELY CAUSED THE BLEEDING. PT HAS BEEN ABLE TO VOID 150-200 ML AT A TIME. REMAINS WITH SOME ISSUES INITIATING URINE FLOW. WILL DO A POST VOID RESIDUAL TO ASSESS RETENTION. PT CONTINUES ON TPA AND HEPARIN TO LEFT FEMORAL SHEATH. HAVE BEEN ABLE TO FIND LEFT PEDAL PULSE WITH DOPPLER THIS MORNING. SITE MARKED WITH 'X' TO ASSIST IN ADDITIONAL ASSESSMENT. PT HAS, UNFORTUNEATELY, HAD ANOTHER EPISODE OF NAUSEA WITH EMESIS. WAS INFORMED THAT PT HAD JUST PREVIOUSLY DRANK TWO GLASSESS OF WATER IN A SHORT PERIOD OF TIME. PT IS NPO FOR POTENTIAL PROCEDURE THIS AM.
[2024-07-04 05:45] LABS: BASOPHILS ABSOLUTE AUTO 0.04 K/mm3 (0.00-0.23); BASOPHILS PERCENT AUTO 0 % (0-2); EOSINOPHILS PERCENT AUTO 0 % (0-6); Hematocrit 32.8 % (37.0-53.0); Hemoglobin 11.2 g/dL (13.5-17.5); IMMATURE GRAN ABSOLUTE AUTO 0.07 K/mm3 (0.00-0.10); IMMATURE GRAN PERCENT AUTO 1 % (0-1); LYMPHOCYTES ABSOLUTE AUTO 0.33 K/mm3 (0.84-5.20); LYMPHOCYTES PERCENT AUTO 2 % (21-46); MONOCYTES ABSOLUTE AUTO 1.01 K/mm3 (0.16-1.47); MONOCYTES PERCENT AUTO 7 % (4-13); Mean Corpuscular HGB 32.4 pg (26.0-34.0); Mean Corpuscular HGB Conc 34.1 g/dL (31.5-36.5); Mean Corpuscular Volume 95 fL (80-100); NEUTROPHILS ABSOLUTE AUTO 14.05 K/mm3 (1.96-9.15); NEUTROPHILS PERCENT AUTO 91 % (41-73); Platelet Count 225 K/mm3 (150-400); RDW Coefficient Variation 12.6 % (11.7-14.2); RDW Standard Deviation 43.5 fL (35.1-46.3); Red Blood Cell Count 3.46 M/mm3 (4.30-5.90)
[2024-07-04 06:20] LABS: Albumin, Blood 3.2 g/dL (3.4-5.0); Bilirubin, Total 0.5 mg/dL (0.1-1.0); Bun/Creatinine Ratio 15.9 (12.0-20.0); Creatinine, Blood 1.32 mg/dL (0.60-1.20); Globulin, Blood 3.3 g/dL (2.2-4.0); Potassium, Blood 4.2 mmol/L (3.5-5.5); Total Protein, Blood 6.5 g/dL (6.4-8.2)
--- NOTE | 2024-07-04 06:30 | NUR ---
CALL MADE TO DR Hicks THIS AM WITH UPDATE ON PT SHEATH AND STABILIZED GROIN SITE. HAVE INFORMED MD THAT PT HAS HAD HEMATURIA SINCE HAVING TO BE STRAIGHT CATHED EARLIER IN EVENING. DISCUSSED AM LABS AND STABLE H/H. ORDER TO TAKE CATHFLOW DOWN TO 0.5 MG/HOUR RECEIVED. THIS HAS BEEN DONE. PT HAS CONDOM CATHETER IN PLACE WHEREAS HE IS ABLE TO VOID. WILL CONTINUE TO MONITOR PT, AND WILL REPORT OFF TO ONCOMING RN.
[2024-07-04] MEDS ORDERED: NS 1,000 ML IV ONE ×2 (13:39→14:03)
[2024-07-04] MEDS ORDERED: Morphine Sulfate 4 MG/1 ML Injection IV PRN ×2 (13:45→16:10)
[2024-07-04] MEDS ORDERED: FentaNYL Citrate 50 MCG/ML 2 ML Injection ONE (13:59)
[2024-07-04] MEDS ORDERED: Midazolam HCl 1MG / ML 2ML Vial ONE ×2 (13:59→14:44)
--- NOTE | 2024-07-04 14:01 | NUR ---
Pt taken to label sewer @ 4123.
[2024-07-04] MEDS ORDERED: NS 250 ML IV ONE (14:03)
[2024-07-04] MEDS ORDERED: Heparin Sodium 1000 Units/ML 10ML MDV ONE (14:03)
[2024-07-04] MEDS ORDERED: Nitroglycerin 2 MG/20 ML BTL ONE (15:05)
--- NOTE | 2024-07-04 16:11 | NUR ---
Pt back from bed laborer at approximately 1550. L/groin access sheath removed with Dr. Watters at bedside, femstop put in place, inflated to 165. Hematoma noted at site prior to sheath removal. Pt somnolent but arousable and verbally responsive. Vital signs stable.
[2024-07-04 17:52] LABS: Anti-Xa UFH, PHA Monitoring 0.26 IU/mL
--- NOTE | 2024-07-04 17:52 | NUR ---
Femstop removed, site cleaned, CHG dressing applied. Hematoma unchanged at this time.
[2024-07-04] MEDS ORDERED: Dose Adjust by Pharmacy XX STA (18:16)
[2024-07-04] MEDS ORDERED: Heparin Sodium,Porcine/0.5 NS 500 ML IV SCH (18:20)
[2024-07-05] VITALS (27 sets, daily range): BP systolic 81–127; BP diastolic 52–95
[2024-07-05] MEDS ORDERED: Dose Adjust by Pharmacy XX STA (01:24)
[2024-07-05 01:28] LABS: BASOPHILS ABSOLUTE AUTO 0.04 K/mm3 (0.00-0.23); BASOPHILS PERCENT AUTO 0 % (0-2); EOSINOPHILS ABSOLUTE AUTO 0.01 K/mm3 (0.00-0.68); EOSINOPHILS PERCENT AUTO 0 % (0-6); Hematocrit 26.6 % (37.0-53.0); Hemoglobin 9.5 g/dL (13.5-17.5); IMMATURE GRAN ABSOLUTE AUTO 0.03 K/mm3 (0.00-0.10); IMMATURE GRAN PERCENT AUTO 0 % (0-1); LYMPHOCYTES ABSOLUTE AUTO 0.81 K/mm3 (0.84-5.20); LYMPHOCYTES PERCENT AUTO 8 % (21-46); MONOCYTES ABSOLUTE AUTO 1.06 K/mm3 (0.16-1.47); MONOCYTES PERCENT AUTO 10 % (4-13); Mean Corpuscular HGB 33.5 pg (26.0-34.0); Mean Corpuscular HGB Conc 35.7 g/dL (31.5-36.5); Mean Corpuscular Volume 94 fL (80-100); Mean Platelet Volume 9.3 fL (9.1-12.4); NEUTROPHILS ABSOLUTE AUTO 8.59 K/mm3 (1.96-9.15); NEUTROPHILS PERCENT AUTO 81 % (41-73); Platelet Count 175 K/mm3 (150-400); RDW Coefficient Variation 12.8 % (11.7-14.2); RDW Standard Deviation 44.1 fL (35.1-46.3); Red Blood Cell Count 2.84 M/mm3 (4.30-5.90); White Blood Cell Count 10.54 K/mm3 (4.00-11.30)
[2024-07-05 01:43] LABS: Albumin, Blood 2.9 g/dL (3.4-5.0); Bilirubin, Total 0.4 mg/dL (0.1-1.0); Bun/Creatinine Ratio 19.9 (12.0-20.0); Calcium, Blood 8.5 mg/dL (8.5-10.1); Creatinine, Blood 1.41 mg/dL (0.60-1.20); Globulin, Blood 2.9 g/dL (2.2-4.0); Total Protein, Blood 5.8 g/dL (6.4-8.2)
--- NOTE | 2024-07-05 06:45 | NUR ---
SHIFT SUMMARY NO ACUTE CHANGES DURING NOC. SLEPT INTERMITTENTLY. REPOSITIONS SELF IN BED. MEDICATED WITH MS 4MG IV X 5 DOSES FOR C/O LEFT SIDE/LEFT LEG PAIN WITH ADEQUATE RELIEF. MEDICATED WITH ZOFRAN THIS AM FOR C/O NAUSEA. VSS. RA SATS STABLE. BILATERAL DP PULSES PALPABLE, BUT FAINT. PCI SITE WITH SMALL AMOUNT OF BRUISING. SITE IS TENDER WITH PALPATION. NO HEMATOMA OR BLEEDING NOTED. VOIDING WITHOUT DIFFICULTY. HEPARIN INFUSING PER PHARMACY. PLAN OF CARE ONGOING.
[2024-07-05] MEDS ORDERED: Rivaroxaban 10 MG Tab PO SCH (09:40)
[2024-07-05] MEDS ORDERED: OxyCODONE HCL 5 MG TAB PO PRN (09:40)
[2024-07-05] MEDS ORDERED: XARELTO20 MG PO (13:02)
[2024-07-05] MEDS ORDERED: XARELTO1 MG/1 ML PO (13:05)
--- NOTE | 2024-07-05 13:42 | NUR ---
Discharge. Pt discharged at 1330. Pt and verbalized understanding of all discharge instructions prior to leaving. Mediport de-accessed and [employer] DC'd, dressings applied to both sites. All personal belongings sent home with patient. Pt taken out to care via wheelchair.
== END 2024-07-05 13:38 | disposition home or self-care (01) | DRG 253 ==
LOC: ER 05:35 → ERHOLD 11:43 → PCU 11:43 → ICUE 07-03 16:08
PROVIDERS: Internal Medicine; Radiology Diagnostic Radiology; Student in an Organized Health Care Education/Training Program; ADMIT Hospitalist
PROC: 047N3ZZ Dilation of Left Popliteal Artery, Percutaneous Approach (ICD-10-PCS; principal; 2024-07-03)
PROC: 3E03317 Introduction of Other Thrombolytic into Peripheral Vein, Percutaneous Approach (ICD-10-PCS; 2024-07-03)
PROC: 047S3ZZ Dilation of Left Posterior Tibial Artery, Percutaneous Approach (ICD-10-PCS; 2024-07-04)
PROC: 047L3ZZ Dilation of Left Femoral Artery, Percutaneous Approach (ICD-10-PCS; 2024-07-04)
DX: I70.222 Atherosclerosis of native arteries of extremities with rest pain, left leg (principal); C34.90 Malignant neoplasm of unspecified part of unspecified bronchus or lung; I74.5 Embolism and thrombosis of iliac artery; N17.9 Acute kidney failure, unspecified; K86.1 Other chronic pancreatitis; R64 Cachexia; Z68.1 Body mass index [BMI] 19.9 or less, adult; E11.22 Type 2 diabetes mellitus with diabetic chronic kidney disease; C14.8 Malignant neoplasm of overlapping sites of lip, oral cavity and pharynx; J44.9 Chronic obstructive pulmonary disease, unspecified; K21.9 Gastro-esophageal reflux disease without esophagitis; I25.10 Atherosclerotic heart disease of native coronary artery without angina pectoris; N18.31 Chronic kidney disease, stage 3a; K74.60 Unspecified cirrhosis of liver; D63.1 Anemia in chronic kidney disease; E78.5 Hyperlipidemia, unspecified; E03.9 Hypothyroidism, unspecified; I77.1 Stricture of artery; F12.90 Cannabis use, unspecified, uncomplicated; G40.909 Epilepsy, unspecified, not intractable, without status epilepticus; S80.12XA Contusion of left lower leg, initial encounter; Z89.412 Acquired absence of left great toe; Z98.890 Other specified postprocedural states; Z88.8 Allergy status to other drugs, medicaments and biological substances; Z79.4 Long term (current) use of insulin; Z79.890 Hormone replacement therapy; Z79.01 Long term (current) use of anticoagulants; Z79.899 Other long term (current) drug therapy; Z90.49 Acquired absence of other specified parts of digestive tract; Z89.422 Acquired absence of other left toe(s); Z87.891 Personal history of nicotine dependence; Z79.02 Long term (current) use of antithrombotics/antiplatelets
CPT/HCPCS: 36415; 37211; 37214; 37224; 37228; 37232; 51701; 75635; 75710; 76937; 80053; 82947; 83735; 83880; 84100; 85014; 85018; 85025; 85049; 85384; 85520; 85610; 85651; 85730; 86140; 93926; 94760; 94762; 96365-59; 96366; 96375-59; 96376-59; 99152; 99153; 99284-25; A9270; C1725; C1751; C1757; C1769; C1887; C1894; J0360; J1171; J1644; J1815; J2250; J2270; J2405; J2997; J3010; J7030; J7050; Q9967

== ENCOUNTER 2024-07-14 15:32 | Emergency (ER) | payer MEDICARE ==
[~2024-07-14] VITALS: Ht 175.3 cm; Wt 55.3 kg
[~2024-07-14 15:32] MED LIST changes: +ALBU90OI INH; +LEVSOD75 PO; +XARELTO1 MG/1 ML PO; +ZYRTEC10 M2 PO
[2024-07-14] MEDS ORDERED: OxyCODONE HCL 5 MG TAB PO ONE (15:50)
[2024-07-14] MEDS ORDERED: OXYC5 PO (15:51)
[2024-07-14 16:17] LABS: BASOPHILS ABSOLUTE AUTO 0.08 K/mm3 (0.00-0.23); BASOPHILS PERCENT AUTO 1 % (0-2); EOSINOPHILS ABSOLUTE AUTO 0.08 K/mm3 (0.00-0.68); EOSINOPHILS PERCENT AUTO 1 % (0-6); Hematocrit 24.1 % (37.0-53.0); Hemoglobin 8.4 g/dL (13.5-17.5); IMMATURE GRAN ABSOLUTE AUTO 0.07 K/mm3 (0.00-0.10); IMMATURE GRAN PERCENT AUTO 1 % (0-1); LYMPHOCYTES PERCENT AUTO 13 % (21-46); MONOCYTES ABSOLUTE AUTO 0.74 K/mm3 (0.16-1.47); MONOCYTES PERCENT AUTO 6 % (4-13); Mean Corpuscular HGB 33.7 pg (26.0-34.0); Mean Corpuscular HGB Conc 34.9 g/dL (31.5-36.5); Mean Corpuscular Volume 97 fL (80-100); Mean Platelet Volume 8.9 fL (9.1-12.4); NEUTROPHILS ABSOLUTE AUTO 9.59 K/mm3 (1.96-9.15); NEUTROPHILS PERCENT AUTO 79 % (41-73); Platelet Count 340 K/mm3 (150-400); RDW Coefficient Variation 13.8 % (11.7-14.2); RDW Standard Deviation 48.5 fL (35.1-46.3); Red Blood Cell Count 2.49 M/mm3 (4.30-5.90); White Blood Cell Count 12.16 K/mm3 (4.00-11.30)
[2024-07-14 16:39] LABS: International Normalized Ratio 1.48; Prothrombin Time Results 15.4 Sec (9.7-11.5)
[2024-07-14 16:52] LABS: Albumin, Blood 3.3 g/dL (3.4-5.0); Albumin/Globulin Ratio 1.1 (0.8-1.8); Bilirubin, Total 0.5 mg/dL (0.1-1.0); Bun/Creatinine Ratio 15.2 (12.0-20.0); Calcium, Blood 7.9 mg/dL (8.5-10.1); Creatinine, Blood 1.58 mg/dL (0.60-1.20); Globulin, Blood 2.9 g/dL (2.2-4.0); Magnesium, Blood 1.7 mg/dL (1.6-2.4); Potassium, Blood 4.1 mmol/L (3.5-5.5); Total Protein, Blood 6.2 g/dL (6.4-8.2)
[2024-07-14] MEDS ORDERED: FentaNYL Citrate 50 MCG/ML 2 ML Injection IV ONE ×3 (17:30→21:15)
[2024-07-14] MEDS ORDERED: HYDROmorphone HCl/Pf 1MG SYR IV ONE ×4 (17:45→19:45)
[2024-07-14] MEDS ORDERED: Ondansetron HCl 2 MG / ML 2ML Vial IV ONE ×2 (19:45→21:10)
[2024-07-14 21:13] LABS: Calcium, Ionized (POC) 1.11 mmol/L (1.10-1.46); Chloride (POC) 107 mmol/L (98-108); Creatinine (POC) 2.2 mg/dL (0.8-1.3); Glucose (ISTAT POC) 387 mg/dL (70-99); Hemoglobin (POC) 6.8 g/dL (13.5-17.5); Potassium (POC) 4.9 mmol/L (3.5-5.5); Sodium (POC) 133 mmol/L (135-148); Total CO2 (POC) 11 mmol/L (21-32)
[2024-07-14] MEDS ORDERED: NS 1,000 ML IV ONE (21:14)
[2024-07-14] MEDS ORDERED: Human Prothrombin Complx(Pcc) 2,000 UNIT in Water For Injection,Sterile 80 ML IV ONE (21:25)
[2024-07-14] MEDS ORDERED: WATER FOR INJECTION STERILE IV ONE (21:35)
[2024-07-14] MEDS ORDERED: HUMAN PROTHROMBIN COMPLX IV ONE (21:35)
[2024-07-14 22:15] VITALS: BP 173/95
== END 2024-07-14 22:20 | disposition short-term general hospital (02) ==
LOC: ER 15:32
PROVIDERS: Emergency Medicine; Student in an Organized Health Care Education/Training Program
DX: S70.12XA Contusion of left thigh, initial encounter (principal); X58.XXXA Exposure to other specified factors, initial encounter
CPT/HCPCS: 36430; 36556; 75635; 80047; 80053; 83735; 85014; 85025; 85610; 85730; 86850; 86900; 86901; 86920; 96374-59; 96375-59; 96376-59; 99285-25; A9270; C1751; J1171; J2405; J3010; J7030; J7168; P9016; P9037; P9059; Q9967

== ENCOUNTER 2024-08-04 09:35 | Day surgery (SDC) | payer MEDICARE, OTHER ==
[~2024-08-04 09:35] MED LIST changes: +OXYC5 PO
[2024-08-04 10:33] VITALS: BP 107/67
[2024-08-04] MEDS ORDERED: SENN187 PO (10:55)
[2024-08-04] MEDS ORDERED: Acetaminophen650 M1 PO (10:55)
[2024-08-04 11:08] LABS: BASOPHILS ABSOLUTE AUTO 0.08 K/mm3 (0.00-0.23); BASOPHILS PERCENT AUTO 1 % (0-2); EOSINOPHILS ABSOLUTE AUTO 0.12 K/mm3 (0.00-0.68); EOSINOPHILS PERCENT AUTO 2 % (0-6); Hematocrit 33.4 % (37.0-53.0); Hemoglobin 10.8 g/dL (13.5-17.5); IMMATURE GRAN ABSOLUTE AUTO 0.03 K/mm3 (0.00-0.10); IMMATURE GRAN PERCENT AUTO 0 % (0-1); LYMPHOCYTES PERCENT AUTO 14 % (21-46); MONOCYTES ABSOLUTE AUTO 0.64 K/mm3 (0.16-1.47); MONOCYTES PERCENT AUTO 8 % (4-13); Mean Corpuscular HGB 30.5 pg (26.0-34.0); Mean Corpuscular HGB Conc 32.3 g/dL (31.5-36.5); Mean Corpuscular Volume 94 fL (80-100); NEUTROPHILS ABSOLUTE AUTO 5.86 K/mm3 (1.96-9.15); NEUTROPHILS PERCENT AUTO 75 % (41-73); Platelet Count 340 K/mm3 (150-400); RDW Coefficient Variation 16.3 % (11.7-14.2); RDW Standard Deviation 56.4 fL (35.1-46.3); Red Blood Cell Count 3.54 M/mm3 (4.30-5.90); White Blood Cell Count 7.83 K/mm3 (4.00-11.30)
[2024-08-04 11:37] LABS: Free Thyroxine 1.1 ng/dL (0.70-1.60)
[2024-08-04 11:51] LABS: Albumin, Blood 3.6 g/dL (3.4-5.0); Albumin/Globulin Ratio 1.1 (0.8-1.8); Bilirubin, Total 0.5 mg/dL (0.1-1.0); Bun/Creatinine Ratio 14.8 (12.0-20.0); Calcium, Blood 8.1 mg/dL (8.5-10.1); Creatinine, Blood 1.62 mg/dL (0.60-1.20); Globulin, Blood 3.4 g/dL (2.2-4.0); Potassium, Blood 4.2 mmol/L (3.5-5.5); Thyroid Stimulating Hormone 11.4 uIU/mL (0.360-4.800); Triiodothyronine, Free 2.1 pg/mL (2.18-3.98)
== END 2024-08-04 10:43 | disposition home or self-care (01) ==
LOC: ATC 09:35
PROVIDERS: Internal Medicine Hematology & Oncology
DX: C34.12 Malignant neoplasm of upper lobe, left bronchus or lung (principal); C09.0 Malignant neoplasm of tonsillar fossa; C77.0 Secondary and unspecified malignant neoplasm of lymph nodes of head, face and neck; C77.1 Secondary and unspecified malignant neoplasm of intrathoracic lymph nodes; I12.9 Hypertensive chronic kidney disease with stage 1 through stage 4 chronic kidney disease, or unspecified chronic kidney disease; E11.22 Type 2 diabetes mellitus with diabetic chronic kidney disease; N18.9 Chronic kidney disease, unspecified; E11.51 Type 2 diabetes mellitus with diabetic peripheral angiopathy without gangrene; M17.9 Osteoarthritis of knee, unspecified; J44.9 Chronic obstructive pulmonary disease, unspecified; Z87.891 Personal history of nicotine dependence; Z79.01 Long term (current) use of anticoagulants; Z79.4 Long term (current) use of insulin; Z79.890 Hormone replacement therapy; Z79.899 Other long term (current) drug therapy; Z88.8 Allergy status to other drugs, medicaments and biological substances; Z91.018 Allergy to other foods
CPT/HCPCS: 36591; 80053; 83036; 84439; 84443; 84481; 85025; J1642

== ENCOUNTER 2024-09-01 00:48 | Day surgery (SDC) | payer MEDICARE ==
[~2024-09-01 00:48] MED LIST changes: +SENN187 PO
[2024-09-01 10:27] VITALS: BP 116/69
[2024-09-01 10:51] LABS: BASOPHILS ABSOLUTE AUTO 0.09 K/mm3 (0.00-0.23); BASOPHILS PERCENT AUTO 1 % (0-2); EOSINOPHILS ABSOLUTE AUTO 0.08 K/mm3 (0.00-0.68); EOSINOPHILS PERCENT AUTO 1 % (0-6); IMMATURE GRAN ABSOLUTE AUTO 0.02 K/mm3 (0.00-0.10); IMMATURE GRAN PERCENT AUTO 0 % (0-1); LYMPHOCYTES ABSOLUTE AUTO 0.82 K/mm3 (0.84-5.20); LYMPHOCYTES PERCENT AUTO 13 % (21-46); MONOCYTES ABSOLUTE AUTO 0.48 K/mm3 (0.16-1.47); MONOCYTES PERCENT AUTO 7 % (4-13); Mean Corpuscular HGB 31.6 pg (26.0-34.0); Mean Corpuscular HGB Conc 34.3 g/dL (31.5-36.5); Mean Corpuscular Volume 92 fL (80-100); Mean Platelet Volume 9.1 fL (9.1-12.4); NEUTROPHILS ABSOLUTE AUTO 5.03 K/mm3 (1.96-9.15); NEUTROPHILS PERCENT AUTO 77 % (41-73); Platelet Count 203 K/mm3 (150-400); RDW Coefficient Variation 14.7 % (11.7-14.2); RDW Standard Deviation 50.2 fL (35.1-46.3); White Blood Cell Count 6.52 K/mm3 (4.00-11.30)
[2024-09-01 11:41] LABS: Free Thyroxine 1.04 ng/dL (0.70-1.60); Thyroid Stimulating Hormone 2.04 uIU/mL (0.360-4.800); Triiodothyronine, Free 1.79 pg/mL (2.18-3.98)
[2024-09-01 11:42] LABS: Albumin, Blood 3.7 g/dL (3.4-5.0); Albumin/Globulin Ratio 1.1 (0.8-1.8); Bilirubin, Total 0.2 mg/dL (0.1-1.0); Bun/Creatinine Ratio 12.1 (12.0-20.0); Calcium, Blood 8.7 mg/dL (8.5-10.1); Creatinine, Blood 1.4 mg/dL (0.60-1.20); Globulin, Blood 3.3 g/dL (2.2-4.0); Potassium, Blood 4.4 mmol/L (3.5-5.5)
== END 2024-09-01 10:33 | disposition home or self-care (01) ==
LOC: ATC 00:48
PROVIDERS: Internal Medicine Hematology & Oncology
DX: C34.12 Malignant neoplasm of upper lobe, left bronchus or lung (principal); C09.0 Malignant neoplasm of tonsillar fossa; I10 Essential (primary) hypertension; J44.9 Chronic obstructive pulmonary disease, unspecified; E11.51 Type 2 diabetes mellitus with diabetic peripheral angiopathy without gangrene; Z87.891 Personal history of nicotine dependence; Z79.4 Long term (current) use of insulin; Z79.01 Long term (current) use of anticoagulants; Z79.899 Other long term (current) drug therapy; Z79.890 Hormone replacement therapy; Z88.1 Allergy status to other antibiotic agents; Z91.02 Food additives allergy status; Z88.8 Allergy status to other drugs, medicaments and biological substances; Z91.018 Allergy to other foods
CPT/HCPCS: 36591; 80053; 84439; 84443; 84481; 85025; J1642

== ENCOUNTER 2024-10-27 00:40 | Day surgery (SDC) | payer MEDICARE ==
[2024-10-27 09:42] VITALS: BP 116/77
[2024-10-27 10:19] LABS: BASOPHILS ABSOLUTE AUTO 0.07 K/mm3 (0.00-0.23); BASOPHILS PERCENT AUTO 1 % (0-2); EOSINOPHILS ABSOLUTE AUTO 0.06 K/mm3 (0.00-0.68); EOSINOPHILS PERCENT AUTO 1 % (0-6); Hematocrit 34.9 % (37.0-53.0); Hemoglobin 12.1 g/dL (13.5-17.5); IMMATURE GRAN ABSOLUTE AUTO 0.02 K/mm3 (0.00-0.10); IMMATURE GRAN PERCENT AUTO 0 % (0-1); LYMPHOCYTES ABSOLUTE AUTO 1.05 K/mm3 (0.84-5.20); LYMPHOCYTES PERCENT AUTO 14 % (21-46); MONOCYTES ABSOLUTE AUTO 0.65 K/mm3 (0.16-1.47); MONOCYTES PERCENT AUTO 9 % (4-13); Mean Corpuscular HGB Conc 34.7 g/dL (31.5-36.5); Mean Corpuscular Volume 94 fL (80-100); NEUTROPHILS ABSOLUTE AUTO 5.48 K/mm3 (1.96-9.15); NEUTROPHILS PERCENT AUTO 75 % (41-73); NRBC ABSOLUTE 0.00 K/mm3 (0.00-0.02); NRBC Auto 0.0 /100 WBC (0.0-0.2); Platelet Count 257 K/mm3 (150-400); RDW Coefficient Variation 13.8 % (11.7-14.2); RDW Standard Deviation 47.2 fL (35.1-46.3)
[2024-10-27 11:37] LABS: Thyroid Stimulating Hormone 0.758 uIU/mL (0.360-4.800)
[2024-10-27 11:38] LABS: Alanine Aminotransfer (ALT/SGP 23.0 U/L (12-78); Albumin, Blood 3.7 g/dL (3.4-5.0); Albumin/Globulin Ratio 1.1 (0.8-1.8); Anion Gap 9.0 mmol/L (3-11); Aspartate Aminotrans (AST/SGOT 15.0 U/L (12-37); Bilirubin, Total 0.3 mg/dL (0.1-1.0); Blood Urea Nitrogen 21.0 mg/dL (8-24); CO2, Blood 22.0 mmol/L (21-32); Calcium, Blood 8.8 mg/dL (8.5-10.1); Chloride, Blood 108.0 mmol/L (98-108); Creatinine, Blood 1.5 mg/dL (0.60-1.20); Globulin, Blood 3.5 g/dL (2.2-4.0); Glucose, Blood 168.0 mg/dL (70-99); Potassium, Blood 4.1 mmol/L (3.5-5.5); Sodium, Blood 135.0 mmol/L (136-145); Total Protein, Blood 7.2 g/dL (6.4-8.2)
== END 2024-10-27 09:55 | disposition home or self-care (01) ==
LOC: ATC 00:40
PROVIDERS: Internal Medicine Hematology & Oncology
DX: C34.12 Malignant neoplasm of upper lobe, left bronchus or lung (principal); C09.0 Malignant neoplasm of tonsillar fossa; I12.9 Hypertensive chronic kidney disease with stage 1 through stage 4 chronic kidney disease, or unspecified chronic kidney disease; E11.22 Type 2 diabetes mellitus with diabetic chronic kidney disease; N18.9 Chronic kidney disease, unspecified; D63.1 Anemia in chronic kidney disease; D61.810 Antineoplastic chemotherapy induced pancytopenia; T45.1X5A Adverse effect of antineoplastic and immunosuppressive drugs, initial encounter; E03.2 Hypothyroidism due to medicaments and other exogenous substances; T50.905A Adverse effect of unspecified drugs, medicaments and biological substances, initial encounter; C77.0 Secondary and unspecified malignant neoplasm of lymph nodes of head, face and neck; E11.51 Type 2 diabetes mellitus with diabetic peripheral angiopathy without gangrene; J44.9 Chronic obstructive pulmonary disease, unspecified; C77.1 Secondary and unspecified malignant neoplasm of intrathoracic lymph nodes; Z87.891 Personal history of nicotine dependence; Z79.01 Long term (current) use of anticoagulants; Z79.4 Long term (current) use of insulin; Z79.890 Hormone replacement therapy; Z79.899 Other long term (current) drug therapy
CPT/HCPCS: 36591; 80053; 84439; 84443; 84481; 85025; J1642

== ENCOUNTER 2024-10-30 02:17 | Day surgery (SDC) | payer MEDICARE ==
[2024-10-30] MEDS ORDERED: Lidocaine HCl 4% Cream 5 GM ONE (12:42)
== END 2024-10-30 23:00 ==
LOC: WOUND 02:17
DX: T87.81 Dehiscence of amputation stump (principal); I73.9 Peripheral vascular disease, unspecified; I87.2 Venous insufficiency (chronic) (peripheral); Z88.8 Allergy status to other drugs, medicaments and biological substances; Z91.018 Allergy to other foods; Z89.612 Acquired absence of left leg above knee; Y83.5 Amputation of limb(s) as the cause of abnormal reaction of the patient, or of later complication, without mention of misadventure at the time of the procedure
CPT/HCPCS: A6213; A9270; G0463

== ENCOUNTER 2024-11-06 03:25 | Day surgery (SDC) | payer MEDICARE, OTHER ==
[2024-11-06] MEDS ORDERED: Lidocaine HCl 4% Cream 5 GM ONE (13:08)
== END 2024-11-06 23:00 | disposition home or self-care (01) ==
LOC: WOUND 03:25
DX: T81.31XA Disruption of external operation (surgical) wound, not elsewhere classified, initial encounter (principal); E11.51 Type 2 diabetes mellitus with diabetic peripheral angiopathy without gangrene; I70.203 Unspecified atherosclerosis of native arteries of extremities, bilateral legs; G93.40 Encephalopathy, unspecified; Z88.8 Allergy status to other drugs, medicaments and biological substances; Z91.018 Allergy to other foods; Z89.512 Acquired absence of left leg below knee; Y83.5 Amputation of limb(s) as the cause of abnormal reaction of the patient, or of later complication, without mention of misadventure at the time of the procedure
CPT/HCPCS: A6213; A9270

== ENCOUNTER 2024-11-13 03:37 | Day surgery (SDC) | payer MEDICARE, OTHER ==
[2024-11-13] MEDS ORDERED: Lidocaine HCl 4% Cream 5 GM ONE (09:34)
== END 2024-11-13 23:00 | disposition home or self-care (01) ==
LOC: WOUND 03:37
DX: T81.31XA Disruption of external operation (surgical) wound, not elsewhere classified, initial encounter (principal); I70.203 Unspecified atherosclerosis of native arteries of extremities, bilateral legs; G93.40 Encephalopathy, unspecified; E11.69 Type 2 diabetes mellitus with other specified complication
CPT/HCPCS: A6213; A9270

== ENCOUNTER 2024-11-24 00:12 | Day surgery (SDC) | payer MEDICARE ==
[2024-11-24 10:24] VITALS: BP 126/66
[2024-11-24 10:40] LABS: BASOPHILS ABSOLUTE AUTO 0.07 K/mm3 (0.00-0.23); BASOPHILS PERCENT AUTO 1 % (0-2); EOSINOPHILS ABSOLUTE AUTO 0.02 K/mm3 (0.00-0.68); EOSINOPHILS PERCENT AUTO 0 % (0-6); Hematocrit 36.6 % (37.0-53.0); Hemoglobin 12.6 g/dL (13.5-17.5); IMMATURE GRAN ABSOLUTE AUTO 0.04 K/mm3 (0.00-0.10); IMMATURE GRAN PERCENT AUTO 0 % (0-1); LYMPHOCYTES ABSOLUTE AUTO 1.00 K/mm3 (0.84-5.20); LYMPHOCYTES PERCENT AUTO 11 % (21-46); MONOCYTES ABSOLUTE AUTO 0.66 K/mm3 (0.16-1.47); MONOCYTES PERCENT AUTO 7 % (4-13); Mean Corpuscular HGB Conc 34.4 g/dL (31.5-36.5); Mean Corpuscular Volume 94 fL (80-100); NEUTROPHILS ABSOLUTE AUTO 7.48 K/mm3 (1.96-9.15); NEUTROPHILS PERCENT AUTO 81 % (41-73); NRBC ABSOLUTE 0.00 K/mm3 (0.00-0.02); NRBC Auto 0.0 /100 WBC (0.0-0.2); Platelet Count 226 K/mm3 (150-400); RDW Coefficient Variation 13.5 % (11.7-14.2); RDW Standard Deviation 46.5 fL (35.1-46.3)
[2024-11-24 11:46] LABS: Alanine Aminotransfer (ALT/SGP 15.0 U/L (12-78); Albumin, Blood 3.5 g/dL (3.4-5.0); Albumin/Globulin Ratio 0.9 (0.8-1.8); Anion Gap 12.0 mmol/L (3-11); Aspartate Aminotrans (AST/SGOT 14.0 U/L (12-37); Bilirubin, Total 0.4 mg/dL (0.1-1.0); Blood Urea Nitrogen 16.0 mg/dL (8-24); CO2, Blood 20.0 mmol/L (21-32); Calcium, Blood 8.4 mg/dL (8.5-10.1); Chloride, Blood 105.0 mmol/L (98-108); Creatinine, Blood 1.38 mg/dL (0.60-1.20); Globulin, Blood 3.7 g/dL (2.2-4.0); Glucose, Blood 151.0 mg/dL (70-99); Potassium, Blood 4.3 mmol/L (3.5-5.5); Sodium, Blood 133.0 mmol/L (136-145); Thyroid Stimulating Hormone 0.695 uIU/mL (0.360-4.800); Total Protein, Blood 7.2 g/dL (6.4-8.2)
== END 2024-11-24 10:30 | disposition home or self-care (01) ==
LOC: ATC 00:12
PROVIDERS: Internal Medicine Hematology & Oncology
DX: C09.0 Malignant neoplasm of tonsillar fossa (principal); C34.12 Malignant neoplasm of upper lobe, left bronchus or lung; I10 Essential (primary) hypertension; J44.9 Chronic obstructive pulmonary disease, unspecified; E11.51 Type 2 diabetes mellitus with diabetic peripheral angiopathy without gangrene; Z87.891 Personal history of nicotine dependence; Z79.899 Other long term (current) drug therapy; Z90.49 Acquired absence of other specified parts of digestive tract; Z88.8 Allergy status to other drugs, medicaments and biological substances; Z91.018 Allergy to other foods
CPT/HCPCS: 36591; 80053; 84436; 84443; 84481; 85025; J1642

== ENCOUNTER 2024-12-03 06:44 | Day surgery (SDC) | payer MEDICARE ==
[2024-12-03] MEDS ORDERED: Lidocaine HCl 4% Cream 5 GM ONE (10:07)
== END 2024-12-03 23:00 | disposition home or self-care (01) ==
LOC: WOUND 06:44
DX: T81.31XA Disruption of external operation (surgical) wound, not elsewhere classified, initial encounter (principal); E11.622 Type 2 diabetes mellitus with other skin ulcer; I70.203 Unspecified atherosclerosis of native arteries of extremities, bilateral legs; G93.40 Encephalopathy, unspecified; Z88.8 Allergy status to other drugs, medicaments and biological substances; Z91.018 Allergy to other foods; Z89.512 Acquired absence of left leg below knee; Y83.5 Amputation of limb(s) as the cause of abnormal reaction of the patient, or of later complication, without mention of misadventure at the time of the procedure
CPT/HCPCS: A6213; A9270

== ENCOUNTER 2024-12-10 04:14 | Day surgery (SDC) | payer MEDICARE ==
[2024-12-10] MEDS ORDERED: Lidocaine HCl 4% Cream 5 GM ONE (09:07)
== END 2024-12-10 23:00 | disposition home or self-care (01) ==
LOC: WOUND 04:14
DX: T87.81 Dehiscence of amputation stump (principal); E11.51 Type 2 diabetes mellitus with diabetic peripheral angiopathy without gangrene; I70.203 Unspecified atherosclerosis of native arteries of extremities, bilateral legs
CPT/HCPCS: A6213; A9270

== ENCOUNTER 2024-12-17 02:41 | Day surgery (SDC) | payer MEDICARE ==
[2024-12-17] MEDS ORDERED: Lidocaine HCl 4% Cream 5 GM ONE (10:09)
== END 2024-12-17 23:00 | disposition home or self-care (01) ==
LOC: WOUND 02:41
DX: T87.81 Dehiscence of amputation stump (principal); E11.622 Type 2 diabetes mellitus with other skin ulcer; I70.203 Unspecified atherosclerosis of native arteries of extremities, bilateral legs; G93.40 Encephalopathy, unspecified; E11.69 Type 2 diabetes mellitus with other specified complication; Z89.512 Acquired absence of left leg below knee; Y83.5 Amputation of limb(s) as the cause of abnormal reaction of the patient, or of later complication, without mention of misadventure at the time of the procedure
CPT/HCPCS: A6213; A9270

== ENCOUNTER 2024-12-22 01:49 | Day surgery (SDC) | payer MEDICARE ==
[2024-12-22 08:27] VITALS: BP 149/55
[2024-12-22 09:08] LABS: BASOPHILS ABSOLUTE AUTO 0.05 K/mm3 (0.00-0.23); BASOPHILS PERCENT AUTO 1 % (0-2); EOSINOPHILS ABSOLUTE AUTO 0.12 K/mm3 (0.00-0.68); EOSINOPHILS PERCENT AUTO 2 % (0-6); Hematocrit 35.0 % (37.0-53.0); Hemoglobin 12.0 g/dL (13.5-17.5); IMMATURE GRAN ABSOLUTE AUTO 0.04 K/mm3 (0.00-0.10); IMMATURE GRAN PERCENT AUTO 1 % (0-1); LYMPHOCYTES ABSOLUTE AUTO 1.11 K/mm3 (0.84-5.20); LYMPHOCYTES PERCENT AUTO 14 % (21-46); MONOCYTES ABSOLUTE AUTO 0.61 K/mm3 (0.16-1.47); MONOCYTES PERCENT AUTO 8 % (4-13); Mean Corpuscular HGB Conc 34.3 g/dL (31.5-36.5); Mean Corpuscular Volume 96 fL (80-100); NEUTROPHILS ABSOLUTE AUTO 5.96 K/mm3 (1.96-9.15); NEUTROPHILS PERCENT AUTO 76 % (41-73); NRBC ABSOLUTE 0.00 K/mm3 (0.00-0.02); NRBC Auto 0.0 /100 WBC (0.0-0.2); Platelet Count 244 K/mm3 (150-400); RDW Coefficient Variation 13.7 % (11.7-14.2); RDW Standard Deviation 48.3 fL (35.1-46.3)
[2024-12-22 09:40] LABS: Thyroid Stimulating Hormone 1.54 uIU/mL (0.360-4.800)
[2024-12-22 09:41] LABS: Alanine Aminotransfer (ALT/SGP 15.0 U/L (12-78); Albumin, Blood 3.3 g/dL (3.4-5.0); Albumin/Globulin Ratio 1.0 (0.8-1.8); Anion Gap 6.0 mmol/L (3-11); Aspartate Aminotrans (AST/SGOT 10.0 U/L (12-37); Bilirubin, Total 0.3 mg/dL (0.1-1.0); Blood Urea Nitrogen 32.0 mg/dL (8-24); CO2, Blood 22.0 mmol/L (21-32); Calcium, Blood 8.5 mg/dL (8.5-10.1); Chloride, Blood 110.0 mmol/L (98-108); Creatinine, Blood 1.3 mg/dL (0.60-1.20); Globulin, Blood 3.4 g/dL (2.2-4.0); Glucose, Blood 243.0 mg/dL (70-99); Potassium, Blood 4.3 mmol/L (3.5-5.5); Sodium, Blood 134.0 mmol/L (136-145); Total Protein, Blood 6.7 g/dL (6.4-8.2)
== END 2024-12-22 08:39 | disposition home or self-care (01) ==
LOC: ATC 01:49
PROVIDERS: Internal Medicine Hematology & Oncology
DX: C09.0 Malignant neoplasm of tonsillar fossa (principal); C34.12 Malignant neoplasm of upper lobe, left bronchus or lung; C77.1 Secondary and unspecified malignant neoplasm of intrathoracic lymph nodes; E11.51 Type 2 diabetes mellitus with diabetic peripheral angiopathy without gangrene; J44.9 Chronic obstructive pulmonary disease, unspecified; I12.9 Hypertensive chronic kidney disease with stage 1 through stage 4 chronic kidney disease, or unspecified chronic kidney disease; E11.22 Type 2 diabetes mellitus with diabetic chronic kidney disease; N18.9 Chronic kidney disease, unspecified; E03.2 Hypothyroidism due to medicaments and other exogenous substances; Z87.891 Personal history of nicotine dependence; Z79.4 Long term (current) use of insulin; Z79.890 Hormone replacement therapy; Z79.01 Long term (current) use of anticoagulants; Z79.899 Other long term (current) drug therapy; Z91.018 Allergy to other foods; Z88.8 Allergy status to other drugs, medicaments and biological substances; Z90.49 Acquired absence of other specified parts of digestive tract
CPT/HCPCS: 36591; 80053; 84439; 84443; 84481; 85025; J1642

== ENCOUNTER 2024-12-24 01:59 | Day surgery (SDC) | payer MEDICARE ==
[2024-12-24] MEDS ORDERED: Lidocaine HCl 4% Topical Soln 5 MLUDC ONE (09:21)
== END 2024-12-24 23:00 | disposition home or self-care (01) ==
LOC: WOUND 01:59
DX: T87.81 Dehiscence of amputation stump (principal); I70.203 Unspecified atherosclerosis of native arteries of extremities, bilateral legs; E11.51 Type 2 diabetes mellitus with diabetic peripheral angiopathy without gangrene
CPT/HCPCS: A6213; A9270

== ENCOUNTER 2024-12-31 02:22 | Day surgery (SDC) | payer MEDICARE ==
[2024-12-31] MEDS ORDERED: Lidocaine HCl 4% Cream 5 GM ONE (10:26)
== END 2024-12-31 23:00 | disposition home or self-care (01) ==
LOC: WOUND 02:22
DX: T81.31XA Disruption of external operation (surgical) wound, not elsewhere classified, initial encounter (principal); G93.40 Encephalopathy, unspecified; E11.9 Type 2 diabetes mellitus without complications
CPT/HCPCS: A6213; A9270

== ENCOUNTER 2025-01-14 01:23 | Day surgery (SDC) | payer MEDICARE ==
[2025-01-14 11:00] VITALS: BP 144/81
== END 2025-01-14 11:11 | disposition home or self-care (01) ==
LOC: ATC 01:23
DX: C09.8 Malignant neoplasm of overlapping sites of tonsil (principal); C34.12 Malignant neoplasm of upper lobe, left bronchus or lung; E11.9 Type 2 diabetes mellitus without complications; J44.9 Chronic obstructive pulmonary disease, unspecified; I10 Essential (primary) hypertension; T87.81 Dehiscence of amputation stump; E11.51 Type 2 diabetes mellitus with diabetic peripheral angiopathy without gangrene; Z87.891 Personal history of nicotine dependence; Z79.4 Long term (current) use of insulin; Z79.84 Long term (current) use of oral hypoglycemic drugs; Z79.899 Other long term (current) drug therapy; Z91.018 Allergy to other foods; Z88.8 Allergy status to other drugs, medicaments and biological substances
CPT/HCPCS: 36591; A6213; A9270; J1642

== ENCOUNTER 2025-01-14 02:09 | Day surgery (SDC) | payer MEDICARE ==
[2025-01-14] MEDS ORDERED: Lidocaine HCl 4% Cream 5 GM ONE (09:45)
== END 2025-01-14 23:00 | disposition home or self-care (01) ==
LOC: WOUND 02:09
DX: T87.81 Dehiscence of amputation stump (principal); E11.51 Type 2 diabetes mellitus with diabetic peripheral angiopathy without gangrene
CPT/HCPCS: A6213; A9270

== ENCOUNTER 2025-01-28 00:19 | Day surgery (SDC) | payer MEDICARE ==
[2025-01-28] MEDS ORDERED: Lidocaine HCl 4% Cream 5 GM ONE (08:38)
== END 2025-01-28 23:00 | disposition home or self-care (01) ==
LOC: WOUND 00:19
DX: T81.31XA Disruption of external operation (surgical) wound, not elsewhere classified, initial encounter (principal); I10 Essential (primary) hypertension; J44.9 Chronic obstructive pulmonary disease, unspecified; E11.51 Type 2 diabetes mellitus with diabetic peripheral angiopathy without gangrene; G40.909 Epilepsy, unspecified, not intractable, without status epilepticus
CPT/HCPCS: A6213; A9270

== ENCOUNTER 2025-02-04 03:10 | Day surgery (SDC) | payer MEDICARE ==
[2025-02-04] MEDS ORDERED: Lidocaine HCl 4% Cream 5 GM ONE (10:22)
== END 2025-02-04 23:00 | disposition home or self-care (01) ==
LOC: WOUND 03:10
DX: T81.31XA Disruption of external operation (surgical) wound, not elsewhere classified, initial encounter (principal); I70.203 Unspecified atherosclerosis of native arteries of extremities, bilateral legs; E11.51 Type 2 diabetes mellitus with diabetic peripheral angiopathy without gangrene; Z89.512 Acquired absence of left leg below knee
CPT/HCPCS: A6213; A9270

== ENCOUNTER 2025-02-10 01:43 | Day surgery (SDC) | payer MEDICARE, OTHER ==
--- NOTE | 2025-02-10 11:03 | NUR ---
PORT ACCESS PLACED STANDARD JAIMES NEEDLE FOR PATIENT AT HIS APPOINTMENT THIS AM. CALL FROM CT STATING THEY NEED A POWER NEEDLE PLACED IN ORDER TO GIVE CONTRAST THROUGH IT. SUPPLIES BROUGHT UP TO CT TO SWAP OUT THE JAIMES NEEDS TO THE CORRECT ONE.
== END 2025-02-10 10:10 | disposition home or self-care (01) ==
LOC: ATC 01:43
DX: Z45.2 Encounter for adjustment and management of vascular access device (principal); C34.12 Malignant neoplasm of upper lobe, left bronchus or lung; C09.8 Malignant neoplasm of overlapping sites of tonsil; E11.9 Type 2 diabetes mellitus without complications; J44.9 Chronic obstructive pulmonary disease, unspecified; I10 Essential (primary) hypertension; Z87.891 Personal history of nicotine dependence; Z79.4 Long term (current) use of insulin; Z79.02 Long term (current) use of antithrombotics/antiplatelets; Z79.01 Long term (current) use of anticoagulants; Z79.899 Other long term (current) drug therapy; Z88.8 Allergy status to other drugs, medicaments and biological substances; Z91.018 Allergy to other foods; Z91.02 Food additives allergy status; I25.10 Atherosclerotic heart disease of native coronary artery without angina pectoris; I70.0 Atherosclerosis of aorta
CPT/HCPCS: 71260; 96523; J1642; Q9967

== ENCOUNTER 2025-02-11 00:42 | Day surgery (SDC) | payer MEDICARE ==
[2025-02-11] MEDS ORDERED: Lidocaine HCl 4% Cream 5 GM ONE (10:36)
== END 2025-02-11 23:00 | disposition home or self-care (01) ==
LOC: WOUND 00:42
DX: T87.81 Dehiscence of amputation stump (principal); E11.51 Type 2 diabetes mellitus with diabetic peripheral angiopathy without gangrene; I70.203 Unspecified atherosclerosis of native arteries of extremities, bilateral legs; Z89.612 Acquired absence of left leg above knee
CPT/HCPCS: A6213; A9270

== ENCOUNTER 2025-02-16 00:56 | Day surgery (SDC) | payer MEDICARE ==
[2025-02-16 08:35] VITALS: BP 120/91
[2025-02-16 13:21] LABS: BASOPHILS ABSOLUTE AUTO 0.07 K/mm3 (0.00-0.23); BASOPHILS PERCENT AUTO 1 % (0-2); EOSINOPHILS ABSOLUTE AUTO 0.08 K/mm3 (0.00-0.68); EOSINOPHILS PERCENT AUTO 1 % (0-6); Hematocrit 34.9 % (37.0-53.0); Hemoglobin 11.9 g/dL (13.5-17.5); IMMATURE GRAN ABSOLUTE AUTO 0.02 K/mm3 (0.00-0.10); IMMATURE GRAN PERCENT AUTO 0 % (0-1); LYMPHOCYTES ABSOLUTE AUTO 0.91 K/mm3 (0.84-5.20); LYMPHOCYTES PERCENT AUTO 11 % (21-46); MONOCYTES ABSOLUTE AUTO 0.67 K/mm3 (0.16-1.47); MONOCYTES PERCENT AUTO 8 % (4-13); Mean Corpuscular HGB Conc 34.1 g/dL (31.5-36.5); Mean Corpuscular Volume 94 fL (80-100); NEUTROPHILS ABSOLUTE AUTO 6.49 K/mm3 (1.96-9.15); NEUTROPHILS PERCENT AUTO 79 % (41-73); NRBC ABSOLUTE 0.00 K/mm3 (0.00-0.02); NRBC Auto 0.0 /100 WBC (0.0-0.2); Platelet Count 244 K/mm3 (150-400); RDW Coefficient Variation 13.3 % (11.7-14.2); RDW Standard Deviation 45.9 fL (35.1-46.3)
[2025-02-16 13:32] LABS: Alanine Aminotransfer (ALT/SGP 17.0 U/L (12-78); Albumin, Blood 3.6 g/dL (3.4-5.0); Albumin/Globulin Ratio 1.2 (0.8-1.8); Anion Gap 6.0 mmol/L (3-11); Aspartate Aminotrans (AST/SGOT 14.0 U/L (12-37); Bilirubin, Total 0.3 mg/dL (0.1-1.0); Blood Urea Nitrogen 23.0 mg/dL (8-24); CO2, Blood 23.0 mmol/L (21-32); Calcium, Blood 8.3 mg/dL (8.5-10.1); Chloride, Blood 112.0 mmol/L (98-108); Creatinine, Blood 1.22 mg/dL (0.60-1.20); Globulin, Blood 3.0 g/dL (2.2-4.0); Glucose, Blood 128.0 mg/dL (70-99); Potassium, Blood 4.0 mmol/L (3.5-5.5); Sodium, Blood 137.0 mmol/L (136-145); Total Protein, Blood 6.6 g/dL (6.4-8.2)
[2025-02-17 09:14] LABS: Thyroid Stimulating Hormone 3.02 uIU/mL (0.360-4.800)
== END 2025-02-16 08:52 | disposition home or self-care (01) ==
LOC: ATC 00:56
PROVIDERS: Internal Medicine Hematology & Oncology
DX: C34.12 Malignant neoplasm of upper lobe, left bronchus or lung (principal); C09.0 Malignant neoplasm of tonsillar fossa; E11.9 Type 2 diabetes mellitus without complications; J44.9 Chronic obstructive pulmonary disease, unspecified; J30.2 Other seasonal allergic rhinitis; I10 Essential (primary) hypertension; M13.869 Other specified arthritis, unspecified knee; Z79.4 Long term (current) use of insulin; Z79.84 Long term (current) use of oral hypoglycemic drugs; Z79.899 Other long term (current) drug therapy; Z87.891 Personal history of nicotine dependence; Z88.6 Allergy status to analgesic agent; Z88.8 Allergy status to other drugs, medicaments and biological substances; Z91.018 Allergy to other foods
CPT/HCPCS: 36591; 80053; 84439; 84443; 84481; 85025; 96365; J1642

== ENCOUNTER 2025-02-18 01:48 | Day surgery (SDC) | payer MEDICARE | END 2025-02-18 23:00 | disposition home or self-care (01) | LOC: WOUND 01:48 | DX: T81.31XA Disruption of external operation (surgical) wound, not elsewhere classified, initial encounter (principal); E11.622 Type 2 diabetes mellitus with other skin ulcer; I70.203 Unspecified atherosclerosis of native arteries of extremities, bilateral legs; G93.40 Encephalopathy, unspecified; Y83.5 Amputation of limb(s) as the cause of abnormal reaction of the patient, or of later complication, without mention of misadventure at the time of the procedure | CPT/HCPCS: A6213; G0463 ==

== ENCOUNTER 2025-02-25 00:11 | Day surgery (SDC) | payer MEDICARE ==
[2025-02-25] MEDS ORDERED: Lidocaine HCl 4% Cream 5 GM ONE (08:55)
== END 2025-02-25 23:00 | disposition home or self-care (01) ==
LOC: WOUND 00:11
DX: T87.81 Dehiscence of amputation stump (principal); E11.9 Type 2 diabetes mellitus without complications; I70.203 Unspecified atherosclerosis of native arteries of extremities, bilateral legs
CPT/HCPCS: A6213; A9270; G0463

== ENCOUNTER 2025-03-08 02:10 | Day surgery (SDC) | payer MEDICARE ==
[2025-03-08 08:46] VITALS: BP 139/76
== END 2025-03-08 11:47 | disposition home or self-care (01) ==
LOC: ATC 02:10
DX: Z45.2 Encounter for adjustment and management of vascular access device (principal); C09.8 Malignant neoplasm of overlapping sites of tonsil; C34.12 Malignant neoplasm of upper lobe, left bronchus or lung; E11.9 Type 2 diabetes mellitus without complications; J44.9 Chronic obstructive pulmonary disease, unspecified; I10 Essential (primary) hypertension; Z87.891 Personal history of nicotine dependence; Z90.49 Acquired absence of other specified parts of digestive tract; Z79.4 Long term (current) use of insulin; Z79.84 Long term (current) use of oral hypoglycemic drugs; Z79.899 Other long term (current) drug therapy; Z88.8 Allergy status to other drugs, medicaments and biological substances; Z91.018 Allergy to other foods; I67.82 Cerebral ischemia; G93.89 Other specified disorders of brain
CPT/HCPCS: 70553; 96523; A9579; J1642

== ENCOUNTER 2025-03-16 02:30 | Day surgery (SDC) | payer MEDICARE ==
[2025-03-16 08:34] VITALS: BP 171/86
[2025-03-16 09:27] LABS: BASOPHILS ABSOLUTE AUTO 0.08 K/mm3 (0.00-0.23); BASOPHILS PERCENT AUTO 1 % (0-2); EOSINOPHILS ABSOLUTE AUTO 0.13 K/mm3 (0.00-0.68); EOSINOPHILS PERCENT AUTO 2 % (0-6); Hematocrit 37.8 % (37.0-53.0); Hemoglobin 13.0 g/dL (13.5-17.5); IMMATURE GRAN ABSOLUTE AUTO 0.03 K/mm3 (0.00-0.10); IMMATURE GRAN PERCENT AUTO 0 % (0-1); LYMPHOCYTES ABSOLUTE AUTO 1.26 K/mm3 (0.84-5.20); LYMPHOCYTES PERCENT AUTO 14 % (21-46); MONOCYTES ABSOLUTE AUTO 0.64 K/mm3 (0.16-1.47); MONOCYTES PERCENT AUTO 7 % (4-13); Mean Corpuscular HGB Conc 34.4 g/dL (31.5-36.5); Mean Corpuscular Volume 96 fL (80-100); NEUTROPHILS ABSOLUTE AUTO 6.72 K/mm3 (1.96-9.15); NEUTROPHILS PERCENT AUTO 76 % (41-73); NRBC ABSOLUTE 0.00 K/mm3 (0.00-0.02); NRBC Auto 0.0 /100 WBC (0.0-0.2); Platelet Count 215 K/mm3 (150-400); RDW Coefficient Variation 12.8 % (11.7-14.2); RDW Standard Deviation 44.6 fL (35.1-46.3)
[2025-03-16 09:43] LABS: Alanine Aminotransfer (ALT/SGP 27.0 U/L (12-78); Albumin, Blood 3.7 g/dL (3.4-5.0); Albumin/Globulin Ratio 1.2 (0.8-1.8); Anion Gap 8.0 mmol/L (3-11); Aspartate Aminotrans (AST/SGOT 17.0 U/L (12-37); Bilirubin, Total 0.5 mg/dL (0.1-1.0); Blood Urea Nitrogen 30.0 mg/dL (8-24); CO2, Blood 22.0 mmol/L (21-32); Calcium, Blood 8.7 mg/dL (8.5-10.1); Chloride, Blood 109.0 mmol/L (98-108); Creatinine, Blood 1.27 mg/dL (0.60-1.20); Globulin, Blood 3.2 g/dL (2.2-4.0); Glucose, Blood 214.0 mg/dL (70-99); Potassium, Blood 4.2 mmol/L (3.5-5.5); Sodium, Blood 135.0 mmol/L (136-145); Total Protein, Blood 6.9 g/dL (6.4-8.2)
== END 2025-03-16 08:42 | disposition home or self-care (01) ==
LOC: ATC 02:30
PROVIDERS: Internal Medicine Hematology & Oncology
DX: C34.12 Malignant neoplasm of upper lobe, left bronchus or lung (principal); C09.0 Malignant neoplasm of tonsillar fossa; E11.9 Type 2 diabetes mellitus without complications; I10 Essential (primary) hypertension; J44.9 Chronic obstructive pulmonary disease, unspecified; Z88.8 Allergy status to other drugs, medicaments and biological substances; Z87.891 Personal history of nicotine dependence
CPT/HCPCS: 36591; 80053; 83036; 85025; J1642

== ENCOUNTER 2025-03-18 00:14 | Day surgery (SDC) | payer MEDICARE | END 2025-03-18 23:35 | disposition home or self-care (01) | LOC: WOUND 00:14 | DX: I70.203 Unspecified atherosclerosis of native arteries of extremities, bilateral legs (principal); G93.40 Encephalopathy, unspecified; E11.9 Type 2 diabetes mellitus without complications; Z86.31 Personal history of diabetic foot ulcer; Z87.828 Personal history of other (healed) physical injury and trauma; Z89.512 Acquired absence of left leg below knee | CPT/HCPCS: G0463 ==

== ENCOUNTER 2025-04-13 08:21 | Day surgery (SDC) | payer MEDICARE ==
[2025-04-13 08:50] VITALS: BP 114/69
[2025-04-13 09:54] LABS: BASOPHILS ABSOLUTE AUTO 0.08 K/mm3 (0.00-0.23); BASOPHILS PERCENT AUTO 1 % (0-2); EOSINOPHILS ABSOLUTE AUTO 0.14 K/mm3 (0.00-0.68); EOSINOPHILS PERCENT AUTO 2 % (0-6); Hematocrit 35.8 % (37.0-53.0); Hemoglobin 12.3 g/dL (13.5-17.5); IMMATURE GRAN ABSOLUTE AUTO 0.01 K/mm3 (0.00-0.10); IMMATURE GRAN PERCENT AUTO 0 % (0-1); LYMPHOCYTES ABSOLUTE AUTO 1.00 K/mm3 (0.84-5.20); LYMPHOCYTES PERCENT AUTO 13 % (21-46); MONOCYTES ABSOLUTE AUTO 0.72 K/mm3 (0.16-1.47); MONOCYTES PERCENT AUTO 9 % (4-13); Mean Corpuscular HGB Conc 34.4 g/dL (31.5-36.5); Mean Corpuscular Volume 97 fL (80-100); NEUTROPHILS ABSOLUTE AUTO 6.03 K/mm3 (1.96-9.15); NEUTROPHILS PERCENT AUTO 76 % (41-73); NRBC ABSOLUTE 0.00 K/mm3 (0.00-0.02); NRBC Auto 0.0 /100 WBC (0.0-0.2); Platelet Count 222 K/mm3 (150-400); RDW Coefficient Variation 13.1 % (11.7-14.2); RDW Standard Deviation 46.9 fL (35.1-46.3)
[2025-04-13 10:24] LABS: Alanine Aminotransfer (ALT/SGP 20.0 U/L (12-78); Albumin, Blood 3.5 g/dL (3.4-5.0); Albumin/Globulin Ratio 1.1 (0.8-1.8); Anion Gap 7.0 mmol/L (3-11); Aspartate Aminotrans (AST/SGOT 18.0 U/L (12-37); Bilirubin, Total 0.3 mg/dL (0.1-1.0); Blood Urea Nitrogen 24.0 mg/dL (8-24); CO2, Blood 24.0 mmol/L (21-32); Calcium, Blood 8.4 mg/dL (8.5-10.1); Chloride, Blood 109.0 mmol/L (98-108); Creatinine, Blood 1.25 mg/dL (0.60-1.20); Ferritin, Serum 130.0 ng/mL (26-388); Globulin, Blood 3.3 g/dL (2.2-4.0); Glucose, Blood 111.0 mg/dL (70-99); Potassium, Blood 4.3 mmol/L (3.5-5.5); Sodium, Blood 136.0 mmol/L (136-145); Thyroid Stimulating Hormone 1.59 uIU/mL (0.360-4.800); Total Iron Binding Capacity 230.0 ug/dL (250-450); Total Protein, Blood 6.8 g/dL (6.4-8.2)
== END 2025-04-13 08:58 | disposition home or self-care (01) ==
LOC: ATC 08:21
PROVIDERS: Internal Medicine Hematology & Oncology
DX: Z45.2 Encounter for adjustment and management of vascular access device (principal); C34.12 Malignant neoplasm of upper lobe, left bronchus or lung; C09.8 Malignant neoplasm of overlapping sites of tonsil; E11.9 Type 2 diabetes mellitus without complications; J44.9 Chronic obstructive pulmonary disease, unspecified; I10 Essential (primary) hypertension; Z87.891 Personal history of nicotine dependence; Z79.4 Long term (current) use of insulin; Z79.84 Long term (current) use of oral hypoglycemic drugs; Z79.899 Other long term (current) drug therapy; Z88.8 Allergy status to other drugs, medicaments and biological substances; Z91.018 Allergy to other foods
CPT/HCPCS: 36591; 80053; 82728; 83540; 83550; 84439; 84443; 84481; 85025; J1642